=== PATIENT | male | born 1960 | race Caucasian/White ===

== ENCOUNTER 2017-01-20 10:47 | Inpatient (IN) | payer OTHER ==
[2017-01-20] MEDS ORDERED: IPRATROPIUM-ALBUTEROL 3 ML NEB INHALATION STA ×2 (11:15→15:33)
--- NOTE | 2017-01-20 11:20 | ED ---
SOB HPI - General Chief Complaint: Shortness of Breath Stated Complaint: Sent by PCP Abdominal Pressure Time Seen by Provider: 01/20/17 11:00 Source: patient, RN notes reviewed Mode of arrival: ambulatory Limitations: no limitations - History of Present Illness Initial Comments: Is a 56-year-old male with a history of congestive heart failure who states he' s had upper abdominal bloating and some exertional dyspnea for the past several days. He wears compression stockings has not noticed any edema to his ankles is out of the ordinary. He denies any fevers chills sweats he perhaps occasionally has a slight cough no nausea no vomiting. He does state normally he urinates a lot after taking his medication he's had decreased urine output today. He voices no other complaints. MD Complaint: shortness of breath - Related Data Home Medications Medication Instructions Recorded Confirmed Warfarin [Coumadin] 5 mg PO MOFR 09/27/16 01/20/17 Atorvastatin Calcium [Lipitor] 10 mg PO HS 01/20/17 01/20/17 Metoprolol Succinate [Toprol XL] 50 mg PO DAILY 01/20/17 01/20/17 Warfarin [Coumadin] 2.5 mg PO SUTUWETHSA 01/20/17 01/20/17 amLODIPine [Norvasc] 5 mg PO HS 01/20/17 01/20/17 Previous Rx's Medication Instructions Recorded Furosemide [Lasix] 40 mg PO DAILY #30 tab 02/02/15 Allergies Allergy/AdvReac Type Severity Reaction Status Date / Time venom-honey bee AdvReac Severe Swelling Verified 01/20/17 11:17 [bee venom (honey bee)] Review of Systems ROS Statement: Those systems with pertinent positive or pertinent negative responses have been documented in the HPI. ROS Other: All systems not noted in ROS Statement are negative. Gastrointestinal: Reports: as per HPI Past Medical History Past Medical History: Atrial Fibrillation, Heart Failure, COPD, Hyperlipidemia, Hypertension Additional Past Medical History / Comment(s): NEW ONSET AFIB History of Any Multi-Drug Resistant Organisms: None Reported Past Surgical History: No Surgical Hx Reported Past Anesthesia/Blood Transfusion Reactions: No Reported Reaction Past Psychological History: No Psychological Hx Reported Smoking Status: Former smoker Past Alcohol Use History: Daily Past Drug Use History: Marijuana General Exam - General Exam Comments Initial Comments: This is a well-developed well-nourished awake alert oriented 3 male Limitations: no limitations General appearance: alert, in no apparent distress Head exam: Present: atraumatic, normocephalic, normal inspection Eye exam: Present: normal appearance, PERRL, EOMI. Absent: scleral icterus, conjunctival injection, periorbital swelling ENT exam: Present: normal exam, mucous membranes moist Neck exam: Present: normal inspection. Absent: tenderness, meningismus, lymphadenopathy Respiratory exam: Present: decreased breath sounds. Absent: respiratory distress, wheezes, rales, rhonchi, stridor Cardiovascular Exam: Present: regular rate, normal rhythm, normal heart sounds. Absent: systolic murmur, diastolic murmur, rubs, gallop, clicks GI/Abdominal exam: Present: soft, normal bowel sounds. Absent: distended, tenderness, guarding, rebound, rigid Extremities exam: Present: normal inspection, full ROM, normal capillary refill. Absent: tenderness, pedal edema, joint swelling, calf tenderness Back exam: Present: normal inspection Neurological exam: Present: alert, oriented X3, CN II-XII intact Psychiatric exam: Present: normal affect, normal mood Skin exam: Present: warm, dry, intact, normal color. Absent: rash Course Vital Signs 01/20/17 01/20/17 01/20/17 10:54 11:00 11:48 Temperature 96.8 F L Pulse Rate 69 64 Respiratory 24 24 Rate Blood Pressure 146/86 O2 Sat by Pulse 94 L Oximetry 01/20/17 01/20/17 01/20/17 12:00 12:52 14:28 Temperature Pulse Rate 60 61 65 Respiratory 17 17 Rate Blood Pressure 151/79 137/78 O2 Sat by Pulse 100 100 Oximetry - Reevaluation(s) Reevaluation #1: 01/20/17 13:24 I did discuss the findings thus far with the patient he does admit to drinking about 3 beers every day he's had no prior history of liver disease from alcohol. Medical Decision Making - Medical Decision Making I did discuss findings with the hospitalist and with the surgeon on-call patient will be admitted to medicine with surgery consultation. - Lab Data Result diagrams: 01/20/17 11:10 01/20/17 11:10 Lab Results 01/20/17 01/20/17 01/20/17 Range/Units 11:10 11:10 11:10 WBC 7.8 (3.8-10.6) k/uL RBC 3.63 L (4.30-5.90) m/uL Hgb 11.9 L (13.0-17.5) gm/dL Hct 36.8 L (39.0-53.0) % MCV 101.3 H (80.0-100.0) fL MCH 32.9 (25.0-35.0) pg MCHC 32.5 (31.0-37.0) g/dL RDW 15.3 (11.5-15.5) % Plt Count 128 L (150-450) k/uL Neutrophils % 77 % Lymphocytes % 11 % Monocytes % 8 % Eosinophils % 1 % Basophils % 1 % Neutrophils # 6.0 (1.3-7.7) k/uL Lymphocytes # 0.9 L (1.0-4.8) k/uL Monocytes # 0.6 (0-1.0) k/uL Eosinophils # 0.1 (0-0.7) k/uL Basophils # 0.1 (0-0.2) k/uL Macrocytosis Slight PT (9.0-12.0) sec INR (<1.1) APTT (22.0-30.0) sec Sodium 137 (137-145) mmol/L Potassium 4.5 (3.5-5.1) mmol/L Chloride 97 L (98-107) mmol/L Carbon Dioxide 30 (22-30) mmol/L Anion Gap 10 mmol/L BUN 12 (9-20) mg/dL Creatinine 1.12 (0.66-1.25) mg/dL Est GFR (MDRD) Af Amer >60 (>60 ml/min/1.73 sqM) Est GFR (MDRD) Non-Af >60 (>60 ml/min/1.73 sqM) Glucose 103 H (74-99) mg/dL Calcium 9.3 (8.4-10.2) mg/dL Magnesium 1.6 (1.6-2.3) mg/dL Total Bilirubin 4.4 H (0.2-1.3) mg/dL AST 160 H (17-59) U/L ALT 83 H (21-72) U/L Alkaline Phosphatase 402 H (38-126) U/L Total Creatine Kinase 62 (55-170) U/L CK-MB (CK-2) 1.5 (0.0-2.4) ng/mL CK-MB (CK-2) Rel Index 2.4 Troponin I 0.014 (0.000-0.034) ng/mL NT-Pro-B Natriuret Pep pg/mL Total Protein 7.3 (6.3-8.2) g/dL Albumin 3.8 (3.5-5.0) g/dL Amylase 52 (30-110) U/L Lipase 71 (23-300) U/L Urine Color Urine Appearance (Clear) Urine pH (5.0-8.0) Ur Specific [place] (1.001-1.035) Urine Protein (Negative) Urine Glucose (UA) (Negative) Urine Ketones (Negative) Urine Blood (Negative) Urine Nitrate (Negative) Urine Bilirubin (Negative) Urine Urobilinogen (<2.0) mg/dL Ur Leukocyte Esterase (Negative) 01/20/17 01/20/17 01/20/17 Range/Units 11:10 11:10 12:35 WBC (3.8-10.6) k/uL RBC (4.30-5.90) m/uL Hgb (13.0-17.5) gm/dL Hct (39.0-53.0) % MCV (80.0-100.0) fL MCH (25.0-35.0) pg MCHC (31.0-37.0) g/dL RDW (11.5-15.5) % Plt Count (150-450) k/uL Neutrophils % % Lymphocytes % % Monocytes % % Eosinophils % % Basophils % % Neutrophils # (1.3-7.7) k/uL Lymphocytes # (1.0-4.8) k/uL Monocytes # (0-1.0) k/uL Eosinophils # (0-0.7) k/uL Basophils # (0-0.2) k/uL Macrocytosis PT 22.1 H (9.0-12.0) sec INR 2.3 (<1.1) APTT 28.8 (22.0-30.0) sec Sodium (137-145) mmol/L Potassium (3.5-5.1) mmol/L Chloride (98-107) mmol/L Carbon Dioxide (22-30) mmol/L Anion Gap mmol/L BUN (9-20) mg/dL Creatinine (0.66-1.25) mg/dL Est GFR (MDRD) Af Amer (>60 ml/min/1.73 sqM) Est GFR (MDRD) Non-Af (>60 ml/min/1.73 sqM) Glucose (74-99) mg/dL Calcium (8.4-10.2) mg/dL Magnesium (1.6-2.3) mg/dL Total Bilirubin (0.2-1.3) mg/dL AST (17-59) U/L ALT (21-72) U/L Alkaline Phosphatase (38-126) U/L Total Creatine Kinase (55-170) U/L CK-MB (CK-2) (0.0-2.4) ng/mL CK-MB (CK-2) Rel Index Troponin I (0.000-0.034) ng/mL NT-Pro-B Natriuret Pep 846 pg/mL Total Protein (6.3-8.2) g/dL Albumin (3.5-5.0) g/dL Amylase (30-110) U/L Lipase (23-300) U/L Urine Color Yellow Urine Appearance Clear (Clear) Urine pH 6.0 (5.0-8.0) Ur Specific [place] 1.009 (1.001-1.035) Urine Protein Negative (Negative) Urine Glucose (UA) Negative (Negative) Urine Ketones Negative (Negative) Urine Blood Negative (Negative) Urine Nitrate Negative (Negative) Urine Bilirubin 1+ H (Negative) Urine Urobilinogen 6.0 (<2.0) mg/dL Ur Leukocyte Esterase Negative (Negative) - EKG Data -: EKG Interpreted by Me EKG shows normal: sinus rhythm - Radiology Data Radiology results: report reviewed (I did review the imaging and reports are is evidence of gallbladder wall thickening. Patient also is no other findings on imaging.), image reviewed Disposition Clinical Impression: Cholecystitis, Jaundice, Hepatitis, Acute exacerbation of chronic obstructive airways disease Disposition: ADMITTED IP TO THIS [facility] Condition: Stable
[2017-01-20 11:47] LABS: Basophils # (A) 0.1 k/uL (0-0.2); Basophils % (A) 1 %; CH 33.7; CHCM 33.5; Eosinophils # (A) 0.1 k/uL (0-0.7); Eosinophils % (A) 1 %; HCT 36.8 % (39.0-53.0); HDW 2.77; HGB 11.9 gm/dL (13.0-17.5); Luc # (Auto) 0.17; Luc % (Auto) 2; Lymphocytes # (A) 0.9 k/uL (1.0-4.8); Lymphocytes % (A) 11 %; MCH 32.9 pg (25.0-35.0); MCHC 32.5 g/dL (31.0-37.0); MCV 101.3 fL (80.0-100.0); Macrocytosis Slight; Mean Platelet Volume 8.4; Monocytes # (A) 0.6 k/uL (0-1.0); Monocytes % (A) 8 %; Neutrophils % (A) 77 %; RBC 3.63 m/uL (4.30-5.90); RDW 15.3 % (11.5-15.5); WBC 7.8 k/uL (3.8-10.6); WBC (Perox) 8.08
[2017-01-20 11:58] LABS: INR 2.3 (<1.1); Partial Thromboplastin Time 28.8 sec (22.0-30.0); Prothrombin Time 22.1 sec (9.0-12.0)
[2017-01-20 12:04] LABS: ALT 83 U/L (21-72); AST 160 U/L (17-59); Alkaline Phosphatase 402 U/L (38-126); Amylase 52 U/L (30-110); Anion Gap 10 mmol/L; Blood Urea Nitrogen 12 mg/dL (9-20); Calcium 9.3 mg/dL (8.4-10.2); Carbon Dioxide 30 mmol/L (22-30); Chloride 97 mmol/L (98-107); Glucose 103 mg/dL (74-99); Magnesium 1.6 mg/dL (1.6-2.3); Non-African American GFR(MDRD) >60 (>60 ml/min/1.73 sqM); Potassium 4.5 mmol/L (3.5-5.1); Sodium 137 mmol/L (137-145); Total Bilirubin 4.4 mg/dL (0.2-1.3); Total Protein 7.3 g/dL (6.3-8.2)
[2017-01-20 12:21] LABS: Creatine Kinase MB 1.5 ng/mL (0.0-2.4); Troponin I 0.014 ng/mL (0.000-0.034)
--- NOTE | 2017-01-20 12:45 | XR ---
EXAMINATION TYPE: XR abdomen 1V DATE OF EXAM: 01/20/2017 12:39 PM COMPARISON: NONE HISTORY: Pain TECHNIQUE: Single supine KUB image of the abdomen is obtained FINDINGS: Small bowel demonstrates no evidence for dilatation or air fluid levels. Gas and fecal material is seen in non-distended colon. No convincing evidence for pneumoperitoneum. No unusual calcifications. The lung bases are clear. The osseous structures are intact. IMPRESSION: 1. Overall nonobstructive bowel gas pattern.
--- NOTE | 2017-01-20 12:45 | XR ---
EXAMINATION TYPE: XR chest 2V DATE OF EXAM: 01/20/2017 12:39 PM COMPARISON: 01/27/2015 HISTORY: Shortness of breath TECHNIQUE: Frontal and lateral views of the chest are obtained. FINDINGS: Scattered senescent parenchymal changes noted. Hyperinflation compatible with COPD. No evidence for infiltrate. No evidence for atelectasis. Heart size is stable. Mediastinal structures are stable and grossly unremarkable. No evidence for hilar prominence. Degenerative changes dorsal spine. IMPRESSION: 1. No evidence for acute pulmonary disease.
[2017-01-20 13:10] LABS: Appearance,Urine Clear (Clear); Bilirubin,Urine 1+ (Negative); Glucose,Urine (UA) Negative (Negative); Ketones,Urine Negative (Negative); Leukocyte Esterase,Urine Negative (Negative); Nitrite,Urine Negative (Negative); Protein,Urine Negative (Negative); Specific Gravity,Urine 1.009 (1.001-1.035); UA Billing (MACRO vs. MICRO) CHEM
--- NOTE | 2017-01-20 14:14 | US ---
EXAMINATION TYPE: US gallbladder DATE OF EXAM: 01/20/2017 1:52 PM COMPARISON: NONE CLINICAL HISTORY: Pain. Epigastric pain, nausea EXAM MEASUREMENTS: Liver Length: 16.0 cm Gallbladder Wall: 0.3 cm CBD: 0.4 cm Right Kidney: 11.2 x 5.1 x 5.8 cm Findings: Pancreas: obscured by overlying bowel Liver: limited evaluation, visualized portions appear heterogeneous, unable to rule out mass Gallbladder: no evidence of stones as visualized, GB wall upper limits of normal Evidence for sonographic Faustin's sign: No CBD: appears wnl Right Kidney: cystic area mid = 1.2 x 1.2 x 1.3cm IMPRESSION: 1. Hepatic heterogeneity may reflect fatty liver versus diffuse hepatocellular disease. 2. Borderline gallbladder wall thickening.
[2017-01-20] MEDS ORDERED: NALOXONE 0.4 MG/ML 1 ML VIAL IV PRN (15:10)
[2017-01-20] MEDS: SODIUM CHLORIDE 0.9% 1,000 ML IV SCH (16:13)
[2017-01-20] MEDS ORDERED: PIPERACILLIN-TAZOBACTAM 3.375 GM in DEXTROSE/WATER 1 50ML.BAG IVPB STA (16:19)
--- NOTE | 2017-01-20 17:54 | P.GSCN ---
History of Present Illness Consult date: 01/20/17 Reason for Consult: Jaundice, cholecystitis Requesting physician: Nestor Ware History of present illness: The patient is a 56-year-old gentleman with known history of atrial fibrillation and is on Coumadin therapy and also with a history of alcohol abuse who is accompanied by his brother. He reports a strong family history of gallbladder disease in his mother as well as his brother who is at bedside. Incidentally his brother had gallstone pancreatitis where he was hospitalized in an intensive care unit. The patient reports eating approximately 2 days ago a steak [employer] sandwich followed by soup. Then he developed epigastric abdominal pain. He presents with elevated liver enzymes with a total bilirubin of over 4. Ultrasound of the gallbladder was obtained without demonstration of gallstones. Given his presentation including elevated liver enzymes, cholecystitis is suspected. Gen. surgery is consulted. Review of Systems CONSTITUTIONAL: Denies any fever or chills. Has weight loss, unintentional. HEENT: Denies any trouble with hearing or nosebleeds. No difficulty swallowing. Wears glasses. LYMPHATIC: The patient denies any lumps and bumps around the neck. ENDOCRINE: Denies any thyroid disorders. Denies any blood sugar glucose intolerance. RESPIRATORY: Denies pneumonia. Denies any troubles with breathing or dyspnea on exertion. CARDIOVASCULAR: Has atrial fibrillation. On Coumadin. Has hypertension. GASTROINTESTINAL: Denies heart burn, constipation. GENITOURINARY: Denies any blood in urine or increased urinary frequency. MUSCULOSKELETAL: Has occasional back pain, stiffness or joint arthritis. NEUROLOGIC: Denies any numbness or tingling along the distal extremities. No seizure disorders or headaches. PSYCHIATRIC: Denies depression or suidical ideation. HEMATOLOGIC: Has easy bruising on Coumadin. Past Medical History Past Medical History: Atrial Fibrillation, Heart Failure, COPD, Hyperlipidemia, Hypertension, Osteoarthritis (OA) Additional Past Medical History / Comment(s): NEW ONSET AFIB History of Any Multi-Drug Resistant Organisms: None Reported Past Surgical History: No Surgical Hx Reported Past Anesthesia/Blood Transfusion Reactions: No Reported Reaction Past Psychological History: No Psychological Hx Reported Additional Psychological History / Comment(s): PT LIVES ALONE HAS 1 INDOOR PET( DOG).HAS 3 STEPS TO GET INTO HOUSE-HOUSE ON 1 LEVEL. 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 Smoking Status: Former smoker Past Alcohol Use History: Daily Additional Past Alcohol Use History / Comment(s): STARTED SMOKING 1984, QUIT FEW YEARS AGO, DRIKS 3-4 BEER PER DAY. Past Drug Use History: Marijuana - Past Family History Father Family Medical History: Cancer, Hyperlipidemia, Hypertension Additional Family Medical History / Comment(s): LEUKEMIA Mother Family Medical History: Myocardial Infarction ([place]) Medications and Allergies Home Medications Medication Instructions Recorded Confirmed Type Warfarin [Coumadin] 5 mg PO MOFR 09/27/16 01/20/17 History Atorvastatin Calcium [Lipitor] 10 mg PO HS 01/20/17 01/20/17 History Metoprolol Succinate [Toprol XL] 50 mg PO DAILY 01/20/17 01/20/17 History Warfarin [Coumadin] 2.5 mg PO SUTUWETHSA 01/20/17 01/20/17 History amLODIPine [Norvasc] 5 mg PO HS 01/20/17 01/20/17 History Allergies Allergy/AdvReac Type Severity Reaction Status Date / Time venom-honey bee AdvReac Severe Swelling Verified 01/20/17 11:17 [bee venom (honey bee)] Surgical - Exam Vital Signs Temp Pulse Resp BP Pulse Ox 96.8 F L 69 24 146/86 94 L 01/20/17 10:54 01/20/17 10:54 01/20/17 10:54 01/20/17 10:54 01/20/17 10:54 GENERAL: Well developed and in no acute distress. Pleasant. HEENT: Has sclera icterus. Extraocular movements grossly intact. Moist buccal mucosa. Head is atraumatic, normocephalic. Hears conversational speech. No nasal drainage. NECK: Supple without lymphadenopathy. No JV distention. CHEST: Non-labored respirations and equal bilateral excursions. CARDIOVASCULAR: Irregular rate and rhythm. Palpable 2+ radial pulses. ABDOMEN: Nondistended. No peritoneal signs. Tenderness along the epigastrium and right upper quadrant extending to the left upper quadrant. MUSCULOSKELETAL: No clubbing, cyanosis or edema. NEUROLOGIC: No focal or lateralizing signs. PSYCH: Appropriate affect. Alert and oriented to person, place and time. SKIN: Jaundiced. There is discoloration of the distal extremities including of the feet and lower legs. Results - Labs 01/20/17 11:10 01/20/17 11:10 - Imaging US - abdomen: report reviewed (No gallstones identified.), image reviewed Assessment and Plan (1) Unintentional weight loss Status: Acute (2) Alcohol abuse Status: Chronic (3) Family history of gallbladder disease Status: Chronic (4) Elevated liver enzymes Status: Acute (5) Elevated liver function tests Status: Acute (6) Jaundice Status: Acute (7) Atrial fibrillation Status: Chronic (8) Congestive heart failure (CHF) Status: Chronic (9) Hypertension Status: Chronic (10) Hyperlipemia Status: Acute (11) Thrombocytopenia Status: Acute Plan: 1. He has elevated liver enzymes with abdominal pain highly suspicious of hepatitis. 2. No evidence of acute gallstones were identified or acute cholecystitis on sonogram. No urgent surgical intervention needed at this time. 3. Additionally, he has thrombocytopenia with abnormal liver enzymes and history of alcoholism. Recommend CT of the abdomen pelvis with IV contrast to elucidate underlying liver pathology. 4. Recommend cardiology for chronic atrial fibrillation and possible need for future surgery. 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 5. May have clear liquid diet in the interim. 6. Recommend GI consultation as he has history of jaundice. 7. Ideally, he will need at least 5-7 days off Coumadin prior to any additional surgical intervention. 8. He has history of alcoholism and would recommend alcohol withdrawal monitoring. The above plan was discussed with the patient including his brother at bedside. Additionally, primary team also updated regarding care plan. Thank you for this kind consultation.
[2017-01-20] MEDS ORDERED: RX INFO: IV CONTRAST WAS GIVEN 1 EACH MISC MISCELLANE PRN (17:55)
--- NOTE | 2017-01-20 19:06 | CT ---
EXAMINATION TYPE: CT abdomen pelvis w con DATE OF EXAM: 01/20/2017 6:54 PM COMPARISON: NONE HISTORY: Pt states of abdominal pain and liver lesions. CT DLP: 645.4 mGycm Automated exposure control for dose reduction was used. TECHNIQUE: Helical acquisition of images was performed from the lung bases through the pelvis. CONTRAST: Performed without Oral Contrast and with IV Contrast, patient injected with 100 mL of Omnipaque 300. FINDINGS: Lung bases are clear. There is no pleural effusion. There is no pericardial effusion. There are varia ble sized areas of abnormal hypodensity in the liver. The largest is in the anterior right lobe and m easures 6 cm. There is general decreased density in the left lobe of the liver anteriorly. Bile ducts are not dilated. Spleen appears normal. There is no evidence of a pancreatic mass. Gallbladder appea rs normal. There is no adrenal mass. Kidneys show satisfactory contrast opacification. There is no hydronephrosi s. There is a 1.5 cm cyst in the interpolar right kidney. There is no retroperitoneal adenopathy. The re is no ascites. There is mild free fluid in the pelvis. I see no intestinal wall thickening. There are no dilated loops. Bladder distends smoothly. I see no bony destructive process. There is 20% ante rior wedging of L1 vertebra. This is probably old. The delayed images appear to show some peripheral enhancement of the lesions in the right lobe of the liver.: IMPRESSION: THERE IS A LARGE AREA OF THE ANTERIOR RIGHT LOBE OF THE LIVER WITH LOW-DENSITY LESIONS AND PERIPHERAL ENHANCEMENT. THIS APPEARANCE IS NONSPECIFIC AND I WOULD CONSIDER BOTH MALIGNANCY AND PRESENCE OF LAR GE HEMANGIOMATA. THERE IS HYPODENSITY IN THE LEFT LOBE OF THE LIVER THAT IS NOT APPEARING MASSLIKE AN D COULD RELATE TO REGIONAL FATTY INFILTRATION. MILD ASCITES. ATHEROSCLEROTIC VASCULAR DISEASE. SMALL RIGHT RENAL CORTICAL CYST. COMPARISON WITH ANY OLD EXAM WOULD BE HELPFUL.
[2017-01-20] MEDS: IPRATROPIUM-ALBUTEROL 3 ML NEB INHALATION SCH ×2 (19:17→22:54)
[2017-01-20 19:38] LABS: Hepatitis B Surface Ag Index 0.12
[2017-01-20 19:43] LABS: Hepatitis B Core IgM Index 0.05
[2017-01-20 19:55] LABS: Hepatitis C Virus IgG Index 0.01
[2017-01-20 19:57] LABS: Hepatitis C Virus IgG Ab Negative (Negative)
[2017-01-21] MEDS: SODIUM CHLORIDE 0.9% 1,000 ML IV SCH ×2 (00:10→09:20)
[2017-01-21] MEDS: IPRATROPIUM-ALBUTEROL 3 ML NEB INHALATION SCH ×3 (03:34→12:06)
[2017-01-21 07:55] VITALS: BP 121/54; PULSE 64; RESP 19; TEMP 99.1
[2017-01-21] MEDS ORDERED: INFLUENZA VACCINE (3YR+) 60 MCG/0.5 ML SYRINGE IM ONE (08:00)
[2017-01-21 08:30] LABS: ALT 63 U/L (21-72); AST 122 U/L (17-59); Alkaline Phosphatase 326 U/L (38-126); Anion Gap 7 mmol/L; Blood Urea Nitrogen 9 mg/dL (9-20); Calcium 8.3 mg/dL (8.4-10.2); Carbon Dioxide 29 mmol/L (22-30); Chloride 102 mmol/L (98-107); Glucose 102 mg/dL (74-99); Non-African American GFR(MDRD) >60 (>60 ml/min/1.73 sqM); Potassium 3.8 mmol/L (3.5-5.1); Sodium 138 mmol/L (137-145); Total Bilirubin 3.5 mg/dL (0.2-1.3); Total Protein 5.9 g/dL (6.3-8.2)
--- NOTE | 2017-01-21 10:10 | P.CONS ---
History of Present Illness - Reason for Consult Consult date: 01/21/17 Hepatitis jaundice Requesting physician: Mee Buckley - History of Present Illness 56-year-old gentleman patient of Dr. Tanner admitted with acute midepigastric abdominal pain, nausea, vomiting, jaundice, and elevated liver enzymes. Past medical history of atrial fibrillation with Coumadin monitoring, long-standing EtOH abuse, CHF, hyperlipidemia, hypertension, COPD, and occasional marijuana. Presenting symptoms have been present for the last 3-4 days with darker colored urine. Denies acholic stools. Total bilirubin 4.4. AST 160. ALT 83. Alkaline phosphatase 402. INR 2.3. White count 7.8. Hemoglobin 11.9. MCV 101. Platelet 128. Upon review of previous medical records liver enzymes were unremarkable October 2016. Denies fever, chills, weight loss, hematemesis, hematochezia, or melena. No history of intravenous drug abuse or changes in medications. No recent antibiotics. He drinks 2-3 days a week 2-3 beers. Hepatitis panel negative. Presently without abdominal pain. Ultrasound abdomen heterogeneous appearing liver with no evidence of stones. CBD 0.4 cm. Computed tomography scan abdomen and pelvis with contrast reported variable sized areas of abnormal hypodensity in the liver. The largest in the anterior right lobe measuring 6 cm. Right anterior lobe of the liver hypodense lesions indicated peripheral enhancement possible malignancy possible presence of large hemangiomata possible combination of both. Bile ducts not dilated. No evidence of pancreatic mass. Gallbladder appeared normal. No ascites. Review of Systems Constitutional: Denies fever, chills, sweats, weight gain, or loss. HEENT: Negative for migraines, blurred vision or loss, earaches, drainage, tinnitus, oral mucosal lesions, dysphagia, or odynophagia. Cardiac: Atrial fibrillation. Heart failure. Hyperlipidemia. Hypertension. Denies chest pain. Respiratory: COPD. Her wanting usage. Negative for shortness of breath, hemoptysis, cough, or sputum production. Gastrointestinal: See HPI for pertinent findings. Genitourinary: Negative for hematuria, urgency, frequency, polyuria, dysuria, or penile discharge. Musculoskeletal: Osteoarthritis. Neurologic: Negative for stroke or TIA. Endocrine: Negative for thyroid problems. Skin: Negative for rash or itching. Psychiatric: Negative history for depression and anxiety All systems: negative (See HPI) Past Medical History Past Medical History: Atrial Fibrillation, Heart Failure, COPD, Hyperlipidemia, Hypertension, Osteoarthritis (OA) Additional Past Medical History / Comment(s): NEW ONSET AFIB History of Any Multi-Drug Resistant Organisms: None Reported Past Surgical History: No Surgical Hx Reported Past Anesthesia/Blood Transfusion Reactions: No Reported Reaction Past Psychological History: No Psychological Hx Reported Additional Psychological History / Comment(s): PT LIVES ALONE HAS 1 INDOOR PET( DOG).HAS 3 STEPS TO GET INTO HOUSE-HOUSE ON 1 LEVEL. 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 Smoking Status: Former smoker Past Alcohol Use History: Daily Additional Past Alcohol Use History / Comment(s): STARTED SMOKING 1984, QUIT FEW YEARS AGO, DRIKS 3-4 BEER PER DAY. Past Drug Use History: Marijuana - Past Family History Father Family Medical History: Cancer, Hyperlipidemia, Hypertension Additional Family Medical History / Comment(s): LEUKEMIA Mother Family Medical History: Myocardial Infarction ([place]) Medications and Allergies Home Medications Medication Instructions Recorded Confirmed Type Warfarin [Coumadin] 5 mg PO MOFR 09/27/16 01/20/17 History Atorvastatin Calcium [Lipitor] 10 mg PO HS 01/20/17 01/20/17 History Metoprolol Succinate [Toprol XL] 50 mg PO DAILY 01/20/17 01/20/17 History Warfarin [Coumadin] 2.5 mg PO SUTUWETHSA 01/20/17 01/20/17 History amLODIPine [Norvasc] 5 mg PO HS 01/20/17 01/20/17 History Allergies Allergy/AdvReac Type Severity Reaction Status Date / Time venom-honey bee AdvReac Severe Swelling Verified 01/20/17 11:17 [bee venom (honey bee)] Physical Exam Vitals: Vital Signs Temp Pulse Pulse Pulse Resp BP BP 01/21/17 07:00 99.1 F 64 19 121/54 01/21/17 00:00 65 01/20/17 23:05 98.9 F 65 20 142/70 01/20/17 23:00 98.9 F 65 20 142/70 01/20/17 20:42 135/75 01/20/17 17:16 98.7 F 64 19 01/20/17 16:50 100.2 F H 70 17 138/72 01/20/17 16:29 68 01/20/17 16:19 68 01/20/17 16:15 98.2 F 77 15 144/79 BP Pulse Ox 01/21/17 07:00 92 L 01/21/17 00:00 01/20/17 23:05 95 01/20/17 23:00 95 01/20/17 20:42 01/20/17 17:16 148/77 97 01/20/17 16:50 97 01/20/17 16:29 01/20/17 16:19 01/20/17 16:15 95 Intake and Output 01/20/17 01/21/17 01/21/17 22:59 06:59 14:59 Intake Total 600 100 Balance 600 100 Intake: Oral 600 100 Other: Voiding Method Toilet Urinal # Voids 1 Weight 77.111 kg General appearance: The patient is alert, oriented, in no acute distress. Jaundice. HET: Head is normocephalic and atraumatic. Pupils are equal and reactive. Sclerae icterus. Oropharynx is clear without lesions. Neck: Supple without lymphadenopathy. Trachea midline. Heart: S1 S2. Regular rate and rhythm. Lungs: No crackles or wheezes are heard. Abdomen: Soft, nontender, nondistended with bowel sounds. No peritoneal signs. No palpable organomegaly or masses. Extremities: Normal skin color and turgor. No cyanosis, rash, ulceration, clubbing, or edema. Radial and pedal pulses are 2/4 bilaterally. Neurological: No focal deficits. Strength and sensation are grossly intact. Results CBC & Chem 7: 01/20/17 11:10 01/21/17 07:09 Labs: Abnormal Lab Results - Last 24 Hours (Table) 01/21/17 Range/Units 07:09 Glucose 102 H (74-99) mg/dL Calcium 8.3 L (8.4-10.2) mg/dL Total Bilirubin 3.5 H (0.2-1.3) mg/dL AST 122 H (17-59) U/L Alkaline Phosphatase 326 H (38-126) U/L Total Protein 5.9 L (6.3-8.2) g/dL Albumin 2.8 L (3.5-5.0) g/dL CT scan - abdomen: report reviewed (Reviewed by Dr. Lux) US - abdomen: report reviewed (Reviewed by Dr. Lux) Assessment and Plan (1) Jaundice Status: Acute (2) Liver mass, right lobe Status: Acute (3) ETOH abuse Status: Acute (4) Elevated liver enzymes Status: Acute (5) Thrombocytopenia Status: Acute (6) Warfarin-induced coagulopathy Status: Acute (7) Hepatitis Narrative/Plan: Suspect intrahepatic cholestasis possible malignancy possible liver hemangioma Status: Acute (8) History of atrial fibrillation Status: Chronic Plan: 1. AFP and CEA markers. 2. Diet as tolerated if agreeable with general surgery. 3. Would advise liver biopsy once PT INR is therapeutic. This can be performed as an outpatient in the next 2-3 days. 4. If liver biopsy is not amendable would advise outpatient MRI liver. 5. Liver enzymes are improving agreeable for discharge. Follow up GI office 1 week after discharge for reevaluation. 6. Alcohol abstinence strongly advised. Thank you for this kind referral and the opportunity to participate in the care of your patient. This consultation was discussed with Dr. Lux. The impression and plan of care have been directed as dictated.
[2017-01-21] MEDS ORDERED: PANTOPRAZOLE 40 MG/10 ML VIAL IVP SCH (11:30)
--- NOTE | 2017-01-21 13:17 | P.PN ---
Subjective 56-year-old being seen sitting up in bed. Patient is aware of the plan of care. Patient is scheduled for an MRI of the liver this afternoon with the plan the patient will be discharged after with a follow-up in GIs office in one week. Patient's been followed by GI service. They're advising a liver biopsy once the pro time and INR therapeutic. Patient is on anticoagulation Coumadin for the chronic atrial fibrillation. Patient did have a computed tomography scan of the abdomen pelvis showed mild ascites with the presence of a large hemangiomata patient did have an ultrasound of the gallbladder did not demonstrate gallstones patient's noted to have elevated liver enzymes a surgical consultation was requested by the attending Objective - Vital Signs Vital signs: Vital Signs Temp 99.1 F 01/21/17 07:00 Pulse 64 01/21/17 07:00 Resp 19 01/21/17 07:00 BP 121/54 01/21/17 07:00 Pulse Ox 92 L 01/21/17 07:00 Intake & Output 01/20/17 01/21/17 01/21/17 18:59 06:59 18:59 Intake Total 700 Balance 700 Weight 77.111 kg Intake: Oral 700 Other: Voiding Method Toilet Toilet Urinal Urinal # Voids 1 - Exam Physical exam 56-year-old looking older than stated age jaundice in appearance thin sitting up in bed oriented 3 pleasant appears in no acute distress Lungs essentially clear adequate air movement on room air Heart S1-S2 audible regular Abdomen flat nontender not distended no palpable organomegaly Extremities no edema - Labs CBC & Chem 7: 01/20/17 11:10 01/21/17 07:09 Labs: Abnormal Lab Results - Last 24 Hours (Table) 01/21/17 Range/Units 07:09 Glucose 102 H (74-99) mg/dL Calcium 8.3 L (8.4-10.2) mg/dL Total Bilirubin 3.5 H (0.2-1.3) mg/dL AST 122 H (17-59) U/L Alkaline Phosphatase 326 H (38-126) U/L Total Protein 5.9 L (6.3-8.2) g/dL Albumin 2.8 L (3.5-5.0) g/dL Assessment and Plan Plan: Impression Present on admission jaundice with elevated liver enzymes History of chronic alcoholism daily consumption acute Coagulopathy Coumadin induced Chronic atrial fibrillation rate control on anticoagulation Ultrasound mass right lobe liver Thrombocytopenia likely due to chronic alcoholism Hepatitis Suspect intrahepatic cholestasis likely malignancy possible liver hemangioma Plan Continue recommendations by GI service. Follow-up in the office in one week MRI of the liver today them to be discharged defer to the timing of the discharge to the attending Alcohol abstinence strongly advised No evidence of acute gallstones were identified per ultrasound there is no urgent surgical intervention needed at this time. Ideally the patient would need to be off anticoagulation Coumadin for at least 5-7 days before any additional surgical intervention The above dictated assessment and findings were discussed with dr Buckley. Impression and the plan of care have been dictated as directed. Delmy Bonner nurse practitioner acting as a scribe for Mike
--- NOTE | 2017-01-21 13:23 | HP ---
DATE OF ADMISSION: HISTORY AND PHYSICAL AND DISCHARGE SUMMARY A 56-year-old came in with complaints of epigastric abdominal pain, burning sensation secondary to gastritis. Patient was started on Protonix here. The patient denied any fevers or chills. Patient was having some nausea. The patient does drink alcohol every single day, about 4 beers per day. Patient denied any alcohol withdrawals in the past and patient does not believe he will have alcohol withdrawals. Patient used to smoke in the past and occasionally uses marijuana. Patient is found to have elevated liver enzymes secondary to alcoholic hepatitis. Gallbladder ultrasound is showed mild thickening, but no cholelithiasis was appreciated. Patient was evaluated by Surgery. No further intervention regarding that. Patient had a CT of the abdomen, abdominopelvic CT, which showed a 6 cm mass in the anterior lobe of the liver, abnormal hypodensity in the liver and suspicious for malignancy versus hemangioma. Patient is getting an MRI. After MRI, patient will be discharged. Patient's Coumadin will be held as patient will be brought back for biopsy in the next couple of days. Patient will be treated for alcoholic gastritis and alcoholic hepatitis. The patient presently does not have any of those symptoms and patient is willing to quit alcohol. Patient does have history of atrial fibrillation and is on Coumadin for that. REVIEW OF SYSTEMS: CONSTITUTIONAL: No fever, no malaise, no fatigue. HEENT: No recent visual problems or hearing problems. Denied any sore throat. CARDIOVASCULAR: No chest pain, orthopnea, PND, no palpitations, no syncope. PULMONARY: No shortness of breath, no cough, no hemoptysis. GASTROINTESTINAL: As described in HPI. NEUROLOGICAL: No headaches, no weakness, no numbness. HEMATOLOGICAL: Denies any bleeding or petechiae. GENITOURINARY: Denies any burning micturition, frequency, or urgency. MUSCULOSKELETAL/RHEUMATOLOGICAL: Denies any joint pain, swelling, or any muscle pain. ENDOCRINE: Denies any polyuria or polydipsia. The rest of the 14 point review of systems is negative. Past medical history is significant for atrial fibrillation, COPD, hyperlipidemia, hypertension, osteoarthritis. I do not see any congestive heart failure at all, though it was documented here. SOCIAL HISTORY: Former smoker. Alcohol history as mentioned. Marijuana history as mentioned above. FAMILY HISTORY: Significant for cancer, hyperlipidemia, hypertension, leukemia. Mother had a myocardial infarction. PHYSICAL EXAMINATION: Temperature 99.1, pulse of 64, respiratory rate of 19, blood pressure is 121/54, saturating at 92% on room air. PHYSICAL EXAMINATION: GENERAL: The patient is alert and oriented x3, not in any acute distress. Well developed, well nourished. HEENT: Pupils are round and equally reacting to light. EOMI. The patient has scleral icterus. No conjunctival pallor. Normocephalic, atraumatic. No pharyngeal erythema. No thyromegaly. CARDIOVASCULAR: S1 and S2 present. No murmurs, rubs, or gallops. PULMONARY: Chest is clear to auscultation, no wheezing or crackles. ABDOMEN: Soft, nontender, nondistended, normoactive bowel sounds. No palpable organomegaly. MUSCULOSKELETAL: No joint swelling or deformity. EXTREMITIES: No cyanosis, clubbing, or pedal edema. NEUROLOGICAL: Gross neurological examination did not reveal any focal deficits. SKIN: No rashes. LABORATORY DATA: CBC, CMP are abnormal for elevated bilirubin, which is coming down which is 3.5 now as compared to 4.4. AST and ALT are elevated and ratio is typical for alcoholic hepatitis, 160 and 83, they are also coming down. Abdominopelvic CT, chest x-ray, gallbladder ultrasound as mentioned above. ASSESSMENT AND PLAN: 1. Abdominal pain secondary to alcoholic gastritis. Patient will be discharged on 14 more doses of Prilosec. 2. Jaundice secondary to acute alcoholic hepatitis. 3. Alcohol abuse history. 4. Elevated liver enzymes secondary to alcoholic hepatitis and AST and ALT ratio is typical for that. 5. Thrombocytopenia and macrocytosis secondary to alcohol use. 6. Atrial fibrillation, rate controlled. on Coumadin. Management of Coumadin as mentioned above. 7. Incidental finding of a mass in the liver. Further evaluation and management as mentioned in the history itself. Patient will be discharged on omeprazole and thiamine after MRI of the liver. Depending on the MRI, decision will be made regarding whether patient will need biopsy or not. If patient does not require biopsy, the patient will be resumed on Coumadin as it is and his INR is therapeutic at this point of time. If not, patient's Coumadin will be held and patient will be brought back in a couple of days for liver biopsy. Additionally patient will be give omeprazole and thiamine. Patient will follow with Dr. Beryl Chery on the january at 9 a.m. Activity as tolerated. Cardiac diet. Alcohol cessation counseling was provided.
--- NOTE | 2017-01-21 15:35 | MR ---
EXAMINATION TYPE: MR liver wo/w con DATE OF EXAM: 01/21/2017 2:52 PM COMPARISON: CT abdomen and pelvis and gallbladder ultrasound from yesterday. HISTORY: Upper abdominal pain, liver mass seen on CT CONTRAST: Standard multiplanar, multisequence MRI departmental protocol utilizing 15 mL intravenous MultiHance gadolinium contrast. FINDINGS: LIVER: Corresponding to recent CT there is overall heterogeneity throughout the liver. There is more focal lesion centrally involving the medial segment left hepatic lobe measuring approximately 4.6 x 4 .4 cm on axial image 28 series 601 that is slight T2 hyperintensity relative to majority of liver and more prominent T1 hypointensity. Postcontrast images show heterogeneous rim type enhancement becomin g slightly more hyperintense on T1-weighted images but persistently less hyperintense than remainder of the liver. There are multiple adjacent subcentimeter similar foci seen near this lesion. There is additional subcentimeter lesion posterior segment right hepatic lobe noted on coronal image 94 series 901 for reference. Hepatic drains draining into IVC are patent. Main portal vein is patent. Right po rtal vein is patent. There is constant filling defect in the hepatic vein as branches into left and h epatic segments centrally seen best image 320 series 801 consistent with thrombus. Tumor thrombus is not excluded though no distinct enhancement is seen. Liver is overall normal in size. There is new p ericholecystic fluid seen. No intraluminal gallstones are identified. No suspicious biliary dilatatio n is noted. Some fatty infiltration throughout the liver is present especially left hepatic lobe. OTHER: Lung bases are clear. Spleen, pancreas, and both adrenal glands are felt within normal limits. There is simple appearing 1.5 cm cyst in the right kidney mid pole level on image 11 series 601. The re is no suspicious small or large bowel dilatation. Adjacent to distal esophagus there is redemonstr ation of focal fluid collection consistent with herniated cyst or fluid of uncertain etiology, there is suggestion of linear fatty structure inferiorly. The etiology uncertain. Lesion is distinct from t he distal esophagus. IMPRESSION: There is filling defect consistent with clot in the portal venous system at branches of middle and le ft portal veins, favor tumor thrombus though no distinct enhancement is identified, bland thrombus ca nnot be excluded. This alters normal vascular pattern and makes post contrast imaging suboptimal laura eved likely contributing to the overall heterogeneity. Neoplasm is suspected in the liver with multif ocal lesions felt present, largest lesion in the anterior aspect medial segment left hepatic lobe. Di fferential includes multifocal HCC versus metastatic disease. Consider imaging guided biopsy for tiss ue analysis.
== END 2017-01-21 15:14 | disposition home or self-care (01) | DRG 392 ==
LOC: EC 10:47 → 4MS4W 15:12
PROVIDERS: ADMIT Internal Medicine; ATTEND Internal Medicine
PROC: 3E0234Z Introduction of Serum, Toxoid and Vaccine into Muscle, Percutaneous Approach (ICD-10-PCS; principal; 2017-01-20)
DX: K29.20 Alcoholic gastritis without bleeding (principal); D69.59 Other secondary thrombocytopenia; R16.0 Hepatomegaly, not elsewhere classified; I48.2 Chronic atrial fibrillation; I11.0 Hypertensive heart disease with heart failure; I50.9 Heart failure, unspecified; K70.11 Alcoholic hepatitis with ascites; Z23 Encounter for immunization; F10.20 Alcohol dependence, uncomplicated; E78.5 Hyperlipidemia, unspecified; D75.89 Other specified diseases of blood and blood-forming organs; M19.90 Unspecified osteoarthritis, unspecified site; F12.90 Cannabis use, unspecified, uncomplicated; R79.1 Abnormal coagulation profile; T45.515A Adverse effect of anticoagulants, initial encounter; Z87.891 Personal history of nicotine dependence; Z79.01 Long term (current) use of anticoagulants; Z79.899 Other long term (current) drug therapy
CPT/HCPCS: 36415; 71020; 74000; 74177; 74183; 76705; 80053; 80074; 81003; 82105; 82150; 82378; 82550; 82553; 83690; 83735; 83880; 84484; 85025; 85610; 85730; 87040; 90686; 93005; 94640; 96360; 99285

== ENCOUNTER 2017-01-28 13:51 | Inpatient (IN) | payer OTHER ==
[2017-01-28] MEDS ORDERED: IOHEXOL 350 MG/ML 25 ML BOTTLE (ORAL USE) PO PRN (14:43)
[2017-01-28] MEDS ORDERED: ONDANSETRON 4 MG/2 ML VIAL IVP STA (14:43)
[2017-01-28] MEDS ORDERED: SODIUM CHLORIDE 0.9% 1,000 ML IV STA (14:43)
[2017-01-28] MEDS ORDERED: MORPHINE SULFATE 2 MG/ML SYRINGE IVP STA (14:43)
--- NOTE | 2017-01-28 14:51 | ED ---
Abdominal Pain HPI - General Chief Complaint: Abdominal Pain Stated Complaint: abdominal bloating Source: patient Mode of arrival: ambulatory Limitations: no limitations - History of Present Illness Initial Comments: Patient is a 56-year-old male who presents for evaluation for abdominal pain and bloating. Past medical history as below. Patient was recently admitted to our facility and diagnosed with possible liver cancer. He is in the process of being worked up as an outpatient and has a biopsy scheduled for later this month. He comes in today because his abdominal pain and bloating is acutely worsened. He has generalized pain all over his abdomen. It is sharp especially with movement. Nothing seems to make it better. He has associated nausea. States that he has decreased by mouth intake because she is afraid to eat because it makes his pain worse. He has shortness of breath which she relates to the pain due to the abdominal distention. He is tried omeprazole at home with no relief. His last bowel movement was 4 days ago. States that he is not passing much gas either. History of significant alcohol abuse but states that he has not drink in several weeks. He denies fever, chills, headache, changes in vision, URI symptoms, cough, chest pain, diarrhea, pain or burning with urination. - Related Data Home Medications Medication Instructions Recorded Confirmed Metoprolol Succinate [Toprol XL] 50 mg PO DAILY 01/20/17 01/28/17 amLODIPine [Norvasc] 5 mg PO HS 01/20/17 01/28/17 Previous Rx's Medication Instructions Recorded Omeprazole [PriLOSEC] 40 mg PO AC-BRKFST #14 capsule. 01/21/17 Thiamine [Vitamin B-1] 100 mg PO DAILY #30 tablet 01/21/17 Allergies Allergy/AdvReac Type Severity Reaction Status Date / Time venom-honey bee AdvReac Severe Swelling Verified 01/28/17 13:57 [bee venom (honey bee)] Review of Systems ROS Statement: Those systems with pertinent positive or pertinent negative responses have been documented in the HPI. ROS Other: All systems not noted in ROS Statement are negative. Past Medical History Past Medical History: Atrial Fibrillation, Cancer, Heart Failure, COPD, Hyperlipidemia, Hypertension, Osteoarthritis (OA) Additional Past Medical History / Comment(s): liver CA, NEW ONSET AFIB History of Any Multi-Drug Resistant Organisms: None Reported Past Surgical History: No Surgical Hx Reported Past Anesthesia/Blood Transfusion Reactions: No Reported Reaction Past Psychological History: No Psychological Hx Reported Additional Psychological History / Comment(s): PT LIVES ALONE HAS 1 INDOOR PET( DOG).HAS 3 STEPS TO GET INTO HOUSE-HOUSE ON 1 LEVEL. 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 Smoking Status: Former smoker Past Alcohol Use History: Daily Additional Past Alcohol Use History / Comment(s): STARTED SMOKING 1984, QUIT FEW YEARS AGO, DRIKS 3-4 BEER PER DAY. Past Drug Use History: Marijuana - Past Family History Father Family Medical History: Cancer, Hyperlipidemia, Hypertension Additional Family Medical History / Comment(s): LEUKEMIA Mother Family Medical History: Myocardial Infarction ([place]) General Exam Limitations: no limitations General appearance: alert, in no apparent distress, other (Lying flat in stretcher.) Head exam: Present: atraumatic, normocephalic, normal inspection Eye exam: Present: PERRL, EOMI, other (Jaundiced). Absent: scleral icterus, conjunctival injection, periorbital swelling ENT exam: Present: normal exam, mucous membranes moist Neck exam: Present: normal inspection. Absent: tenderness, meningismus, lymphadenopathy Respiratory exam: Present: normal lung sounds bilaterally, other (Clear bilaterally without wheezes rales or rhonchi. Diminished at the lung bases.). Absent: respiratory distress, wheezes, rales, rhonchi, stridor Cardiovascular Exam: Present: regular rate, normal rhythm, normal heart sounds. Absent: systolic murmur, diastolic murmur, rubs, gallop, clicks GI/Abdominal exam: Present: soft, distended, tenderness, hyperactive bowel sounds, other (Abdomen is distended. Caput medusa present. No fluid wave to suggest significant ascites. Generalized tenderness all over his abdomen. Palpable liver margin roughly 4 cm. Hyperactive bowel sounds especially in the left lower quadrant.). Absent: guarding, rebound, rigid Extremities exam: Present: normal inspection, full ROM, normal capillary refill. Absent: tenderness, pedal edema, joint swelling, calf tenderness Back exam: Present: normal inspection Neurological exam: Present: alert, oriented X3, CN II-XII intact Psychiatric exam: Present: normal affect, normal mood Skin exam: Present: warm, dry, intact, normal color. Absent: rash Course Vital Signs 01/28/17 01/28/17 01/28/17 13:53 15:47 16:00 Temperature 97.3 F L 97 F L Pulse Rate 89 74 73 Respiratory 18 18 16 Rate Blood Pressure 116/61 121/73 117/63 O2 Sat by Pulse 97 97 97 Oximetry 01/28/17 18:00 Temperature Pulse Rate 73 Respiratory 16 Rate Blood Pressure 123/63 O2 Sat by Pulse 95 Oximetry Medical Decision Making - Medical Decision Making 1445: Patient presents for evaluation for generalized abdominal pain and bloating. This is acutely worsened over the last couple of days. Clinical concern for bowel obstruction at this time. Recently diagnosed with possible liver cancer. We'll order abdominal labs with coags, CT abdomen and pelvis with by mouth contrast, IV fluids, morphine, Zofran. 1555: LA 4.1. Ordered additional fluids. Reviewed laboratory studies. Worsening AST and ALT. Acute kidney injury. No leukocytosis. Rest of lites appeared to be within normal limits. Updated the patient. He states that he is feeling a little bit better with the pain medications and Zofran. Awaiting CT. He still drinking the contrast. 1836: Reviewed CT findings. New-onset ascites. Enlarged liver. No bowel obstruction. No other inflammatory changes in the belly. Discussed with the patient. Very upset with the pace on which his final diagnosis is being achieved. Recommended admission with further investigation on the patient's condition. Considered SBP. However, the patient is not having any constant abdominal pain. He is hemodynamically stable without fevers. No leukocytosis. Believe his lactic acidosis is secondary to dehydration. He has felt better after morphine and IV fluids. Patient is also anticoagulated with an INR 1.9. Page to Dr. Ware for admission. 1842: Spoke with PROCESSING SUPERVISOR of Dr. Ware -agrees with admission. Requesting consults to GI. Morphine to be scheduled when necessary. No further orders. - Lab Data Result diagrams: 01/28/17 14:50 01/28/17 14:50 Lab Results 01/28/17 01/28/17 01/28/17 Range/Units 14:50 14:50 14:50 WBC 8.1 (3.8-10.6) k/uL RBC 3.47 L (4.30-5.90) m/uL Hgb 11.7 L (13.0-17.5) gm/dL Hct 37.1 L (39.0-53.0) % MCV 106.8 H D (80.0-100.0) fL MCH 33.8 (25.0-35.0) pg MCHC 31.7 (31.0-37.0) g/dL RDW 17.1 H (11.5-15.5) % Plt Count 194 D (150-450) k/uL Neutrophils % 83 % Lymphocytes % 9 % Monocytes % 5 % Eosinophils % 1 % Basophils % 1 % Neutrophils # 6.7 (1.3-7.7) k/uL Lymphocytes # 0.7 L (1.0-4.8) k/uL Monocytes # 0.4 (0-1.0) k/uL Eosinophils # 0.1 (0-0.7) k/uL Basophils # 0.0 (0-0.2) k/uL Polychromasia Present Anisocytosis Slight Macrocytosis Marked PT (9.0-12.0) sec INR (<1.1) APTT (22.0-30.0) sec Sodium 136 L (137-145) mmol/L Potassium 4.4 (3.5-5.1) mmol/L Chloride 97 L (98-107) mmol/L Carbon Dioxide 27 (22-30) mmol/L Anion Gap 12 mmol/L BUN 33 H (9-20) mg/dL Creatinine 1.70 H (0.66-1.25) mg/dL Est GFR (MDRD) Af Amer 51 (>60 ml/min/1.73 sqM) Est GFR (MDRD) Non-Af 42 (>60 ml/min/1.73 sqM) Glucose 106 H (74-99) mg/dL Plasma Lactic Acid Puma 4.1 H* (0.7-2.0) mmol/L Calcium 8.9 (8.4-10.2) mg/dL Total Bilirubin 8.3 H (0.2-1.3) mg/dL AST 317 H (17-59) U/L ALT 93 H (21-72) U/L Alkaline Phosphatase 458 H (38-126) U/L Total Protein 7.0 (6.3-8.2) g/dL Albumin 3.1 L (3.5-5.0) g/dL Lipase 70 (23-300) U/L Urine Color Urine Appearance (Clear) Urine pH (5.0-8.0) Ur Specific Wallis (1.001-1.035) Urine Protein (Negative) Urine Glucose (UA) (Negative) Urine Ketones (Negative) Urine Blood (Negative) Urine Nitrate (Negative) Urine Bilirubin (Negative) Urine Urobilinogen (<2.0) mg/dL Ur Leukocyte Esterase (Negative) Urine RBC (0-5) /hpf Urine WBC (0-5) /hpf Urine Bacteria (None) /hpf Hyaline Casts (0-2) /lpf Urine Mucus (None) /hpf 01/28/17 01/28/17 Range/Units 14:50 17:47 WBC (3.8-10.6) k/uL RBC (4.30-5.90) m/uL Hgb (13.0-17.5) gm/dL Hct (39.0-53.0) % MCV (80.0-100.0) fL MCH (25.0-35.0) pg MCHC (31.0-37.0) g/dL RDW (11.5-15.5) % Plt Count (150-450) k/uL Neutrophils % % Lymphocytes % % Monocytes % % Eosinophils % % Basophils % % Neutrophils # (1.3-7.7) k/uL Lymphocytes # (1.0-4.8) k/uL Monocytes # (0-1.0) k/uL Eosinophils # (0-0.7) k/uL Basophils # (0-0.2) k/uL Polychromasia Anisocytosis Macrocytosis PT 18.0 H (9.0-12.0) sec INR 1.9 (<1.1) APTT 30.7 H (22.0-30.0) sec Sodium (137-145) mmol/L Potassium (3.5-5.1) mmol/L Chloride (98-107) mmol/L Carbon Dioxide (22-30) mmol/L Anion Gap mmol/L BUN (9-20) mg/dL Creatinine (0.66-1.25) mg/dL Est GFR (MDRD) Af Amer (>60 ml/min/1.73 sqM) Est GFR (MDRD) Non-Af (>60 ml/min/1.73 sqM) Glucose (74-99) mg/dL Plasma Lactic Acid Puma (0.7-2.0) mmol/L Calcium (8.4-10.2) mg/dL Total Bilirubin (0.2-1.3) mg/dL AST (17-59) U/L ALT (21-72) U/L Alkaline Phosphatase (38-126) U/L Total Protein (6.3-8.2) g/dL Albumin (3.5-5.0) g/dL Lipase (23-300) U/L Urine Color Dark Brown Urine Appearance Cloudy (Clear) Urine pH 5.5 (5.0-8.0) Ur Specific [place] 1.025 (1.001-1.035) Urine Protein Trace H (Negative) Urine Glucose (UA) Negative (Negative) Urine Ketones Negative (Negative) Urine Blood Negative (Negative) Urine Nitrate Negative (Negative) Urine Bilirubin 2+ H (Negative) Urine Urobilinogen >12.0 (<2.0) mg/dL Ur Leukocyte Esterase Negative (Negative) Urine RBC 1 (0-5) /hpf Urine WBC 17 H (0-5) /hpf Urine Bacteria Rare H (None) /hpf Hyaline Casts 43 H (0-2) /lpf Urine Mucus Rare H (None) /hpf Disposition Clinical Impression: Abdominal distention, Ascites, MILA (acute kidney injury), Lactic acidosis, Transaminitis, Anticoagulated Disposition: ADMITTED IP TO THIS [facility] Condition: Fair Decision to Admit Reason: Admit from EC
[2017-01-28 15:49] LABS: Anisocytosis Slight; Basophils % (A) 1 %; CH 34.3; CHCM 32.4; Eosinophils # (A) 0.1 k/uL (0-0.7); Eosinophils % (A) 1 %; HCT 37.1 % (39.0-53.0); HDW 2.71; HGB 11.7 gm/dL (13.0-17.5); Luc # (Auto) 0.16; Luc % (Auto) 2; Lymphocytes # (A) 0.7 k/uL (1.0-4.8); Lymphocytes % (A) 9 %; MCH 33.8 pg (25.0-35.0); MCHC 31.7 g/dL (31.0-37.0); Macrocytosis Marked; Mean Platelet Volume 8.8; Monocytes # (A) 0.4 k/uL (0-1.0); Monocytes % (A) 5 %; Neutrophils # (A) 6.7 k/uL (1.3-7.7); Neutrophils % (A) 83 %; RBC 3.47 m/uL (4.30-5.90); RDW 17.1 % (11.5-15.5); WBC 8.1 k/uL (3.8-10.6); WBC (Perox) 8.41
[2017-01-28 15:50] LABS: INR 1.9 (<1.1); Partial Thromboplastin Time 30.7 sec (22.0-30.0)
[2017-01-28 15:52] LABS: Calcium 8.9 mg/dL (8.4-10.2); MCV 106.8 fL (80.0-100.0); Potassium 4.4 mmol/L (3.5-5.1); Total Bilirubin 8.3 mg/dL (0.2-1.3)
[2017-01-28] MEDS ORDERED: SODIUM CHLORIDE 0.9% 1,000 ML IV ONE (15:54)
--- NOTE | 2017-01-28 15:55 | XR ---
EXAMINATION TYPE: XR KUB DATE OF EXAM: 01/28/2017 3:50 PM CLINICAL HISTORY: Abdominal pain and distention for one week TECHNIQUE: 2 upright KUB images of the abdomen are obtained. COMPARISON: Abdominal x-ray and CT abdomen and pelvis January 20, 2017. FINDINGS: Scattered gas is seen in non-distended small bowel loops. Gas and fecal material is seen in non-distended colon. Some scattered vascular calcification is present. No pneumoperitoneum is iden tified. Lung bases are clear. Osseous structures are intact. IMPRESSION: Overall nonobstructive bowel gas pattern.
[2017-01-28 16:25] LABS: Polychromasia Present
--- NOTE | 2017-01-28 17:53 | CT ---
EXAMINATION TYPE: CT abdomen pelvis w con DATE OF EXAM: 01/28/2017 5:43 PM COMPARISON: 01/20/2017 HISTORY: Pt states of abdominal pain and vomiting. Recent dx of liver CA x1 week ago. CT DLP: 728.5 mGycm CONTRAST: CT scan of the abdomen and pelvis is performed with Oral Contrast and with IV Contrast, patient injec ronaldo with 100 mL of Omnipaque 300. FINDINGS: LUNG BASES-: No visible nodule. No infiltrate. LIVER/GB: Multiple hepatic lesions noted compatible with primary hepatocellular carcinoma or metastat ic disease. There is evidence for new onset ascites adjacent to the liver margin and extending into t he right paracolic gutter. Fluid is also seen within the pelvis. The gallbladder is unremarkable. PANCREAS: No inflammation. No distinct mass. SPLEEN: No splenic enlargement. No lesion seen. ADRENALS: No nodule. No thickening. KIDNEYS/BLADDER: No hydronephrosis. No nephrolithiasis. 1.2 cm cyst midpole right kidney. Left kid mike is unremarkable. Urinary bladder grossly unremarkable. BOWEL: Normal appendix. Normal bowel caliber. No inflammation. 3.6 cm low attenuating structure adj acent to the distal esophagus may reflect transient fluid or lymph node. GENITAL ORGANS: No gross abnormality. LYMPH NODES: No greater than 1cm abdominal or pelvic lymph nodes are appreciated. AORTA: No significant abnormality. OSSEOUS STRUCTURES: No significant abnormality is seen. OTHER: No significant additional abnormality is seen. IMPRESSION: 1. Stable hepatic lesions as discussed. 2. New onset ascites
[2017-01-28 18:03] LABS: Appearance,Urine Cloudy (Clear); Bacteria,Urine Rare /hpf; Bilirubin,Urine 2+ (Negative); Glucose,Urine (UA) Negative (Negative); Ketones,Urine Negative (Negative); Leukocyte Esterase,Urine Negative (Negative); Mucus,Urine Rare /hpf; Nitrite,Urine Negative (Negative); PH, Urine 5.5 (5.0-8.0); Particle Count 9831; Protein,Urine Trace (Negative); RBC,Urine 1 /hpf (0-5); Specific Gravity,Urine 1.025 (1.001-1.035); UA Billing (MACRO vs. MICRO) MICRO; Urobilinogen,Urine >12.0 mg/dL (<2.0); WBC,Urine 17 /hpf (0-5)
[2017-01-28] MEDS ORDERED: NALOXONE 0.4 MG/ML 1 ML VIAL IV PRN (18:43)
[2017-01-28] MEDS ORDERED: ONDANSETRON 4 MG/2 ML VIAL IVP PRN (18:43)
[2017-01-28] MEDS: RX INFO: IV CONTRAST WAS GIVEN 1 EACH MISC MISCELLANE PRN (19:46)
[2017-01-28] MEDS: MORPHINE SULFATE 4 MG/ML SYRINGE IV PRN (20:35)
[2017-01-28 20:46] VITALS: BMI 23.8
[2017-01-28] MEDS ORDERED: IPRATROPIUM-ALBUTEROL 3 ML NEB INHALATION PRN (23:31)
[2017-01-28] MEDS ORDERED: MELATONIN 3 MG TABLET PO PRN (23:32)
[2017-01-28] MEDS ORDERED: LORazepam 2 MG/ML SYRINGE IV PRN ×3 (23:37)
[2017-01-29] MEDS: MORPHINE SULFATE 4 MG/ML SYRINGE IV PRN ×2 (04:05→16:25)
[2017-01-29 08:03] LABS: Magnesium 2.2 mg/dL (1.6-2.3); Potassium 4.6 mmol/L (3.5-5.1); Total Bilirubin 7.2 mg/dL (0.2-1.3)
[2017-01-29 08:05] LABS: Anisocytosis Slight; CH 34.6; CHCM 32.1; HCT 31.4 % (39.0-53.0); HGB 10.3 gm/dL (13.0-17.5); MCH 35.6 pg (25.0-35.0); MCHC 32.7 g/dL (31.0-37.0); MCV 108.7 fL (80.0-100.0); Macrocytosis Marked; Mean Platelet Volume 9.8; RBC 2.89 m/uL (4.30-5.90); RDW 17.1 % (11.5-15.5)
[2017-01-29] MEDS: THIAMINE 100 MG TAB PO SCH (08:16)
[2017-01-29] MEDS: PANTOPRAZOLE 40 MG TABLET PO SCH (08:16)
[2017-01-29] MEDS: METOPROLOL SUCCINATE (ER) 50 MG TAB.ER.24H PO SCH (08:16)
[2017-01-29] MEDS: IPRATROPIUM-ALBUTEROL 3 ML NEB INHALATION SCH ×4 (09:09→20:36)
[2017-01-29] MEDS ORDERED: PHYTONADIONE ORAL 5 MG/5 ML ORAL.SYRG PO STA (11:26)
--- NOTE | 2017-01-29 11:55 | P.CONS ---
History of Present Illness - Reason for Consult Consult date: 01/29/17 ascites Requesting physician: Nestor Ware - History of Present Illness 56-year-old gentleman patient of Dr. Tanner admitted with increased abdominal distention and discomfort. Recently hospitalized a week ago for acute midepigastric abdominal pain, nausea, vomiting, jaundice, and elevated liver enzymes. Past medical history of atrial fibrillation with Coumadin monitoring, long-standing EtOH abuse, CHF, hyperlipidemia, hypertension, COPD, and occasional marijuana. Last dose of Coumadin 1 week ago. No current use of alcohol. Patient has noticed more yellowing of skin and darker urine over the last few days as well as increased abdominal bloatedness. Computed tomography scan abdomen pelvis yesterday reported ascites around the liver. No mentioning of intra-or extrahepatic biliary dilatation. During his last hospitalization he underwent a computed tomography scan abdomen and pelvis that reported multiple liver lesions without ductal dilatation. Follow-up liver MRI reported a filling defect consistent with clot in the portal venous system at the middle and left portal vein branches multiple liver lesions. Intra-/extra hepatic dilatation not mentioned. Tumor markers unremarkable AFP 4.1. CEA 2.0. Hepatitis panel negative. Total bilirubin on 01/20/2017 was 4.4 yesterday it increased to 8.3 currently 7.2. AST 285. ALT 85. Alkaline phosphates 344. Lipase 70. INR 1.9. BUN 43. Creatinine 1.9. White count 7. Hemoglobin 10.3. MCV 108. Platelet 163. Review of Systems Constitutional: Denies fever, chills, sweats, weight gain, or loss. HEENT: Negative for migraines, blurred vision or loss, earaches, drainage, tinnitus, oral mucosal lesions, dysphagia, or odynophagia. Cardiac: Atrial fibrillation. Heart failure. Hyperlipidemia. Hypertension. Denies chest pain. Respiratory: COPD. Her wanting usage. Negative for shortness of breath, hemoptysis, cough, or sputum production. Gastrointestinal: See HPI for pertinent findings. Genitourinary: Negative for hematuria, urgency, frequency, polyuria, dysuria, or penile discharge. Musculoskeletal: Osteoarthritis. Neurologic: Negative for stroke or TIA. Endocrine: Negative for thyroid problems. Skin: Negative for rash or itching. Psychiatric: Negative history for depression and anxiety All systems: negative (See HPI) Past Medical History Past Medical History: Atrial Fibrillation, Cancer, Heart Failure, COPD, Hyperlipidemia, Hypertension, Osteoarthritis (OA) Additional Past Medical History / Comment(s): liver CA, NEW ONSET AFIB History of Any Multi-Drug Resistant Organisms: None Reported Past Surgical History: No Surgical Hx Reported Past Anesthesia/Blood Transfusion Reactions: No Reported Reaction Past Psychological History: No Psychological Hx Reported Additional Psychological History / Comment(s): PT LIVES ALONE HAS 1 INDOOR PET( DOG).HAS 3 STEPS TO GET INTO HOUSE-HOUSE ON 1 LEVEL. 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 Smoking Status: Former smoker Past Alcohol Use History: Daily Additional Past Alcohol Use History / Comment(s): STARTED SMOKING 1984, QUIT FEW YEARS AGO, DRIKS 3-4 BEER PER DAY. Past Drug Use History: Marijuana - Past Family History Father Family Medical History: Cancer, Hyperlipidemia, Hypertension Additional Family Medical History / Comment(s): LEUKEMIA Mother Family Medical History: Myocardial Infarction ([place]) Medications and Allergies Home Medications Medication Instructions Recorded Confirmed Type Metoprolol Succinate [Toprol XL] 50 mg PO DAILY 01/20/17 01/28/17 History amLODIPine [Norvasc] 5 mg PO HS 01/20/17 01/28/17 History Allergies Allergy/AdvReac Type Severity Reaction Status Date / Time venom-honey bee AdvReac Severe Swelling Verified 01/28/17 13:57 [bee venom (honey bee)] Physical Exam Vitals: Vital Signs Temp Pulse Pulse Resp BP BP Pulse Ox 01/29/17 07:00 97.3 F L 66 16 111/65 90 L 01/29/17 00:00 75 16 01/28/17 20:21 98.2 F 75 16 130/65 96 01/28/17 19:07 71 18 108/58 96 Intake and Output 01/28/17 01/29/17 01/29/17 22:59 06:59 14:59 Intake Total 150 150 Balance 150 150 Intake: IV 150 150 Sodium Chloride 0.9% 1, 150 150 000 ml @ 75 mls/hr IV . [id number] STA Rx#:[id number] Other: Voiding Method Toilet Toilet Urinal Urinal # Voids 2 Weight 77.564 kg General appearance: The patient is alert, oriented, in no acute distress. Jaundice. HET: Head is normocephalic and atraumatic. Pupils are equal and reactive. Sclerae icterus. Oropharynx is clear without lesions. Neck: Supple without lymphadenopathy. Trachea midline. Heart: S1 S2. Regular rate and rhythm. Lungs: No crackles or wheezes are heard. Abdomen: Soft, distended with mild tenderness to midepigastrium right upper quadrant, mild ascites, with bowel sounds. No peritoneal signs. No palpable organomegaly or masses. Extremities: Normal skin color and turgor. No cyanosis, rash, ulceration, clubbing, or edema. Radial and pedal pulses are 2/4 bilaterally. Neurological: No focal deficits. Strength and sensation are grossly intact. Results CBC & Chem 7: 01/29/17 07:31 01/29/17 07:31 Labs: Abnormal Lab Results - Last 24 Hours (Table) 01/28/17 01/29/17 01/29/17 Range/Units 19:01 07:31 07:31 RBC 2.89 L (4.30-5.90) m/uL Hgb 10.3 L (13.0-17.5) gm/dL Hct 31.4 L (39.0-53.0) % MCV 108.7 H (80.0-100.0) fL MCH 35.6 H (25.0-35.0) pg RDW 17.1 H (11.5-15.5) % Sodium 133 L (137-145) mmol/L BUN 43 H (9-20) mg/dL Creatinine 1.92 H (0.66-1.25) mg/dL Plasma Lactic Acid Puma 3.2 H* (0.7-2.0) mmol/L Calcium 8.0 L (8.4-10.2) mg/dL Total Bilirubin 7.2 H (0.2-1.3) mg/dL AST 285 H (17-59) U/L ALT 85 H (21-72) U/L Alkaline Phosphatase 344 H (38-126) U/L Total Protein 6.0 L (6.3-8.2) g/dL Albumin 2.5 L (3.5-5.0) g/dL CT scan - abdomen: report reviewed (Reviewed by Dr. Pickard) CT scan - pelvis: report reviewed (Reviewed by Dr. Pickard) US - abdomen: pending Assessment and Plan (1) Jaundice Narrative/Plan: Suspect intrahepatic cholestasis secondary to underlying malignancy. Status: Acute (2) Ascites Status: Acute (3) Liver masses Narrative/Plan: HCC possible metastatic disease Status: Acute (4) Portal vein thrombosis Status: Acute (5) Coagulopathy Status: Acute (6) Acute kidney injury Status: Acute (7) ETOH abuse Status: Acute (8) Elevated liver enzymes Status: Acute Plan: 1. Ultrasound to assess if ascites requires paracentesis. 2. Ultrasound liver biopsy possibly tomorrow. Will provide vitamin K 5 mg oral 1 with repeat PT INR in a.m. 3. Diet as tolerated. 4. Worsening jaundice is felt to be related to an intrahepatic cholestatic process secondary to underlying malignancy in the liver. Biliary ductal tumor compression kept within the differential. At this time ERCP/biliary stenting is not immediately planned secondary to absence of intra-extra hepatic biliary dilatation on multiple abdominal imaging studies. Reconsideration for ERCP/ biliary stenting will be contingent on clinical course after liver biopsy is performed and review of morning liver coagulation chemistries. We'll discuss case with oncology. Thank you for this kind referral and the opportunity to participate in the care of your patient. This consultation was discussed with Dr. Pickard. The impression and plan of care have been directed as dictated.
--- NOTE | 2017-01-29 14:16 | US ---
EXAMINATION TYPE: US abdomen limited DATE OF EXAM: 01/29/2017 1:58 PM COMPARISON: 01/20/2017 CLINICAL HISTORY: ascites. TECHNOLOGIST IMPRESSION: Scanned all 4 quadrants: small amount of ascites seen in RUQ and RLQ, no fl uid seen in LUQ and LLQ. IMPRESSION: 1. Minimal ascites.
[2017-01-29] MEDS ORDERED: LEVOFLOXACIN 500MG-D5W PMX 500 MG in DEXTROSE/WATER 1 100ML.BAG IVPB SCH (15:00)
--- NOTE | 2017-01-29 17:36 | HP ---
DATE OF ADMISSION: 01/28/2017 DATE OF SERVICE: 01/29/2017 CHIEF COMPLAINT: Abdominal pain and bloating. HISTORY OF PRESENT ILLNESS: This 56-year-old gentleman with a past medical history of multiple medical problems, including history of atrial fibrillation, history of CHF, history of COPD, history of hypertension, family history of chronic systolic dysfunction, history of DJD, was admitted with abdominal pain. His recent CT scan showed evidence of possible hepatic mass. MRI followup showed suspected portal venous thrombus also. The patient was scheduled for liver biopsy tomorrow. Patient was admitted for further evaluation and treatment, because of bloating and abdominal pain also. Gastroenterology evaluation is in progress. There is no history of any fever, rigor or chills. Patient apparently was not taking any hard alcohol drinks, according to him; drinking about 2 to 3 beers a day. Lab-aguilar, the lactic acid is elevated at 3.2 and total bilirubin is 8.3 and 7.2. AST is also elevated. UA showed 17 WBCs. PAST MEDICAL HISTORY: 1. History of atrial fibrillation. 2. CHF. 3. COPD. 4. Hypertension. 5. Hyperlipidemia. 6. History of DJD. 7. Possible suspected liver mass. Medications prior to admission include: 1. Norvasc 5 mg at bedtime. 2. Vitamin B1 100 mg p.o. daily. 3. Prilosec 40 mg before breakfast. 4. Toprol XL 50 mg daily. ALLERGIES: HONEY BEES. FAMILY HISTORY: History of cancer, hyperlipidemia, hypertension, leukemia in the family. SOCIAL HISTORY: Previous history of smoking. Occasional alcohol intake. REVIEW OF SYSTEMS: ENT: No diminished vision. No diminished hearing. CARDIOVASCULAR SYSTEM: As mentioned earlier. RESPIRATORY SYSTEM: As mentioned earlier. GI: As mentioned earlier. : No dysuria. NERVOUS SYSTEM: No numbness or weakness. ALLERGY/IMMUNOLOGY: No asthma or hayfever. MUSCULOSKELETAL: As mentioned earlier. HEMATOLOGY/ONCOLOGY: No history of anemia. ENDOCRINE: As mentioned earlier. CONSTITUTIONAL: As mentioned earlier. DERMATOLOGY: Negative. RHEUMATOLOGY: Negative. PSYCHIATRY: As mentioned earlier. PHYSICAL EXAMINATION: Patient is alert and oriented x3. Pulse is 66, blood pressure 111/65, respiration 16, temperature 97.2, pulse ox 90% on room air. HEENT: Conjunctivae normal. Oral mucosa moist. icteric. NECK: No jugular venous distention. No carotid bruit. No lymph node enlargement. CARDIOVASCULAR SYSTEM: S1, S2 muffled. No S3. No S4. RESPIRATORY SYSTEM: Breath sounds diminished at the bases. Bilateral scattered rhonchi and crackles. ABDOMEN: Soft. Mild diffuse distention present. Flanks are dull. No mass palpable. LEGS: No edema. No swelling. NERVOUS SYSTEM: Higher functions as mentioned earlier. Moves all 4 limbs. No focal motor or sensory deficit. LYMPHATICS: No lymph node palpable in neck, axillae or groin. SKIN: No ulcer, rash, bleeding. LABS: WBC 7, hemoglobin 10.3, MCV 108.7. Sodium is 133. Creatinine is 1.92. Plasma lactic acid 3.2. LFTs are noted. ASSESSMENT: 1. Abdominal pain and distention with possibly primary hepatic malignancy versus metastasis with ascites. 2. Increased bilirubin with possible acute hepatitis, possibly secondary to alcoholic hepatitis or cirrhosis of liver. 3. Increased AST, ALT, alkaline phosphatase. 4. Increased plasma lactic acid. 5. Increased creatinine with possible acute renal failure, possible prerenal factors. 6. Hyponatremia. 7. Anemia, macrocytic, possibly secondary to alcohol. 8. History of ethanol. 9. History of nicotine dependence. 10. Hypoalbuminemia protein-calorie malnutrition. 11. History of atrial fibrillation. 12. History of congestive heart failure with chronic systolic dysfunction. 13. Chronic obstructive pulmonary disease. 14. Hypertension. 15. Hyperlipidemia. 16. History of degenerative joint disease. 17. History of tetrahydrocannabinol. 18. Coagulopathy possibly secondary to chronic liver disease. 19. FULL CODE. RECOMMENDATIONS AND DISCUSSION: In this 56-year-old gentleman who presented with multiple complex medical issues, we will monitor the patient closely, continue the current medications, continue with symptomatic treatment. Monitor PT and INR closely. Other than that, possible liver biopsy. Repeat labs. Will obtain gastroenterology as well as hematology/oncology consultations. Renal functions will be closely monitored. Patient's lactic acid also was elevated. I would recommend cultures and empiric antibiotics also. See orders for further details. Overall prognosis extremely guarded because of multiple complex medical issues. Further recommendations to follow. A copy of this dictation is being forwarded to Dr. Beryl Baeza, who is the primary physician. [facility] HOSPITALJeremy
--- NOTE | 2017-01-29 19:36 | P.CONS ---
History of Present Illness - Reason for Consult Consult date: 01/29/17 liver lesions Requesting physician: Latesha Curiel - Chief Complaint abd pain and distension - History of Present Illness Mr. De León is a very pleasant male pt who we have seen intermittently on an outpatient basis for INR monitoring for history of a-fib, we may seen him 2-4 times a year. He has uncontrolled hypertension and in general does not have regular medical monitoring. Over the last 2-3 weeks pt has been having right upper quadrant, epigastric abd pain associated with bloating, dark urine and decreased appetite, the pain is aching, constant, worse with eating and drinking so his oral intake has been very poor, laying still is the only thing that minimizes the pain, pain meds are helping some here in the hospital, pt has no idea what is going on but he wants to find out quickly. He was seen last week inpatient for abd symptoms, he was worked up for suspect choleycystitis but unfortunately he was found to have liver mass, plan was for biopsy tomorrow as pt had to hold coumadin. At this time pt would like something to drink but is not hungry. His pain is restricting his activity. He denies fevers, vomiting, diarrhea, constipation or bleeding. Review of Systems All systems: negative Constitutional: Reports as per HPI Past Medical History Past Medical History: Atrial Fibrillation, Heart Failure, COPD, Hyperlipidemia, Hypertension, Osteoarthritis (OA) Additional Past Medical History / Comment(s): NEW ONSET AFIB History of Any Multi-Drug Resistant Organisms: None Reported Past Surgical History: No Surgical Hx Reported Past Anesthesia/Blood Transfusion Reactions: No Reported Reaction Past Psychological History: No Psychological Hx Reported Additional Psychological History / Comment(s): PT LIVES ALONE HAS 1 INDOOR PET( DOG).HAS 3 STEPS TO GET INTO HOUSE-HOUSE ON 1 LEVEL. 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 Smoking Status: Former smoker Past Alcohol Use History: Daily Additional Past Alcohol Use History / Comment(s): STARTED SMOKING 1984, QUIT FEW YEARS AGO, DRIKS 3-4 BEER PER DAY. Past Drug Use History: Marijuana - Past Family History Father Family Medical History: Cancer, Hyperlipidemia, Hypertension Additional Family Medical History / Comment(s): LEUKEMIA Mother Family Medical History: Myocardial Infarction (PR) Medications and Allergies Home Medications Medication Instructions Recorded Confirmed Type Metoprolol Succinate [Toprol XL] 50 mg PO DAILY 01/20/17 01/28/17 History amLODIPine [Norvasc] 5 mg PO HS 01/20/17 01/28/17 History Allergies Allergy/AdvReac Type Severity Reaction Status Date / Time venom-honey bee AdvReac Severe Swelling Verified 01/28/17 13:57 [bee venom (honey bee)] Physical Exam Vitals: Vital Signs Temp Pulse Pulse Resp BP Pulse Ox 01/29/17 16:20 72 01/29/17 16:14 72 01/29/17 15:00 98.4 F 66 16 115/63 94 L 01/29/17 07:00 97.3 F L 66 16 111/65 90 L 01/29/17 00:00 75 16 01/28/17 20:21 98.2 F 75 16 130/65 96 Intake and Output 01/29/17 01/29/17 01/29/17 06:59 14:59 22:59 Intake Total 150 300 Balance 150 300 Intake: IV 150 300 Sodium Chloride 0.9% 1, 150 300 000 ml @ 75 mls/hr IV . [id number] [facility] Rx#:[id number] Other: Voiding Method Toilet Toilet Toilet Urinal Urinal Urinal # Voids 2 1 - Constitutional General appearance: cooperative, mild distress - EENT Eyes: scleral icterus ENT: hearing grossly normal, normal oropharynx - Neck Neck: no lymphadenopathy - Respiratory Respiratory: bilateral: CTA - Cardiovascular Rhythm: irregularly irregular Heart sounds: normal: S1, S2 leg Peripheral Edema: bilateral: None - Gastrointestinal venous prominence noted on entire abd General gastrointestinal: no absent bowel sounds, no decreased bowel sounds, distended, no hepatomegaly, no hyperactive bowel sounds, normal bowel sounds, no organomegaly, no rigid, no scaphoid, soft, no splenomegaly, tenderness, no umbilical hernia, no ventral hernia - Integumentary Integumentary: jaundiced - Neurologic Neurologic: CNII-XII intact - Musculoskeletal Musculoskeletal: strength equal bilaterally - Psychiatric Psychiatric: A&O x's 3, appropriate affect, intact judgment & insight Results CBC & Chem 7: 01/29/17 07:31 01/29/17 07:31 Labs: Abnormal Lab Results - Last 24 Hours (Table) 01/28/17 01/29/17 01/29/17 Range/Units 19:01 07:31 07:31 RBC 2.89 L (4.30-5.90) m/uL Hgb 10.3 L (13.0-17.5) gm/dL Hct 31.4 L (39.0-53.0) % MCV 108.7 H (80.0-100.0) fL MCH 35.6 H (25.0-35.0) pg RDW 17.1 H (11.5-15.5) % Sodium 133 L (137-145) mmol/L BUN 43 H (9-20) mg/dL Creatinine 1.92 H (0.66-1.25) mg/dL Plasma Lactic Acid Puma 3.2 H* (0.7-2.0) mmol/L Calcium 8.0 L (8.4-10.2) mg/dL Total Bilirubin 7.2 H (0.2-1.3) mg/dL AST 285 H (17-59) U/L ALT 85 H (21-72) U/L Alkaline Phosphatase 344 H (38-126) U/L Total Protein 6.0 L (6.3-8.2) g/dL Albumin 2.5 L (3.5-5.0) g/dL Comments: recent hospitalization notes reviewed Chest x-ray: report reviewed CT scan - abdomen: report reviewed CT scan - pelvis: report reviewed US - abdomen: report reviewed Assessment and Plan (1) Ascites Narrative/Plan: Order placed for pt to be evaluated for paracentesis Status: Acute (2) Liver masses Narrative/Plan: Pt has been off coumadin for almost a week as he was sched for liver biopsy tomorrow for path and diagnosis Status: Acute (3) Elevated liver function tests Narrative/Plan: related to disease in the liver, stable at this time, pt being hydrated Status: Acute (4) Jaundice Status: Acute (5) Coagulopathy Narrative/Plan: Pt was given vit K in anticipation of liver biopsy tomorrow, pt liver dysfunction and recent poor oral intake is contributing to his prolonged anticoagulation. Status: Acute Plan: We will await biopsy results
[2017-01-29] MEDS: amLODIPine 5 MG TAB PO SCH (20:52)
[2017-01-30] MEDS: IPRATROPIUM-ALBUTEROL 3 ML NEB INHALATION SCH ×4 (08:16→20:22)
[2017-01-30 09:03] LABS: Prothrombin Time 18.9 sec (9.0-12.0)
[2017-01-30 09:11] LABS: Calcium 8.2 mg/dL (8.4-10.2); Magnesium 2.4 mg/dL (1.6-2.3); Potassium 4.5 mmol/L (3.5-5.1); Total Bilirubin 8.7 mg/dL (0.2-1.3); Total Protein 6.1 g/dL (6.3-8.2)
[2017-01-30 09:17] LABS: Anisocytosis Slight; Basophils # (A) 0.1 k/uL (0-0.2); Basophils % (A) 1 %; CH 34.8; Eosinophils % (A) 0 %; HCT 33.7 % (39.0-53.0); HDW 2.67; HGB 10.8 gm/dL (13.0-17.5); Immature Gran Flag Slight; Luc # (Auto) 0.13; Luc % (Auto) 2; Lymphocytes # (A) 0.6 k/uL (1.0-4.8); Lymphocytes % (A) 7 %; MCV 109.7 fL (80.0-100.0); Macrocytosis Marked; Mean Platelet Volume 9.9; Monocytes # (A) 0.4 k/uL (0-1.0); Monocytes % (A) 4 %; Neutrophils # (A) 7.4 k/uL (1.3-7.7); Neutrophils % (A) 87 %; RBC 3.07 m/uL (4.30-5.90); RDW 17.1 % (11.5-15.5); WBC 8.6 k/uL (3.8-10.6); WBC (Perox) 9.14
[2017-01-30] MEDS: METOPROLOL SUCCINATE (ER) 50 MG TAB.ER.24H PO SCH (09:32)
[2017-01-30] MEDS: PANTOPRAZOLE 40 MG TABLET PO SCH (09:32)
[2017-01-30] MEDS: THIAMINE 100 MG TAB PO SCH (09:32)
[2017-01-30 09:46] LABS: Manual Review Performed
--- NOTE | 2017-01-30 11:34 | P.PN ---
Subjective Principal diagnosis: Obstructive jaundice liver masses 56-year-old male with a history of EtOH abuse admitted with abdominal distention , ascites on CT, worsening of jaundice with multiple liver masses. Received oral vitamin K yesterday for INR 1. 9 repeat this morning is 2.0. Afebrile. Reports generalized abdominal discomfort no nausea vomiting. Intermittent constipation. Total bilirubin increased to 8.7 today. AST 476. ALT 110. Alkaline phosphatase 329. Ammonia 10. Ultrasound abdomen reported no appreciable ascites for percutaneous drainage. Objective - Vital Signs Vital signs: Vital Signs Temp 97.7 F 01/30/17 07:00 Pulse 72 01/30/17 08:27 Resp 16 01/30/17 07:00 BP 102/56 01/30/17 07:00 Pulse Ox 95 01/30/17 07:00 Intake & Output 01/29/17 01/30/17 01/30/17 18:59 06:59 18:59 Intake Total 300 Balance 300 Intake: IV 300 Sodium Chloride 0.9% 1, 300 000 ml @ 75 mls/hr IV . [id number] [facility] Rx#:[id number] Other: Voiding Method Toilet Toilet Toilet Urinal Urinal Urinal # Voids 1 1 - Exam General appearance: The patient is alert, oriented, in no acute distress. Jaundice. HET: Head is normocephalic and atraumatic. Pupils are equal and reactive. Sclerae icterus. Oropharynx is clear without lesions. Neck: Supple without lymphadenopathy. Trachea midline. Heart: S1 S2. Regular rate and rhythm. Lungs: No crackles or wheezes are heard. Abdomen: Soft, distended with mild tenderness to midepigastrium right upper quadrant, mild ascites, with bowel sounds. No peritoneal signs. No palpable organomegaly or masses. Extremities: Normal skin color and turgor. No cyanosis, rash, ulceration, clubbing, or edema. Radial and pedal pulses are 2/4 bilaterally. Neurological: No focal deficits. Strength and sensation are grossly intact. - Labs CBC & Chem 7: 01/30/17 08:21 01/30/17 08:21 Labs: Abnormal Lab Results - Last 24 Hours (Table) 01/30/17 01/30/17 01/30/17 Range/Units 08:21 08:21 08:21 RBC 3.07 L (4.30-5.90) m/uL Hgb 10.8 L (13.0-17.5) gm/dL Hct 33.7 L (39.0-53.0) % MCV 109.7 H (80.0-100.0) fL RDW 17.1 H (11.5-15.5) % Lymphocytes # 0.6 L (1.0-4.8) k/uL PT 18.9 H (9.0-12.0) sec Sodium 131 L (137-145) mmol/L Chloride 95 L (98-107) mmol/L BUN 55 H (9-20) mg/dL Creatinine 2.77 H (0.66-1.25) mg/dL Glucose 112 H (74-99) mg/dL Calcium 8.2 L (8.4-10.2) mg/dL Magnesium 2.4 H (1.6-2.3) mg/dL Total Bilirubin 8.7 H (0.2-1.3) mg/dL AST 476 H (17-59) U/L ALT 110 H (21-72) U/L Alkaline Phosphatase 329 H (38-126) U/L Total Protein 6.1 L (6.3-8.2) g/dL Albumin 2.6 L (3.5-5.0) g/dL Microbiology - Last 24 Hours (Table) 01/29/17 16:30 Urine Culture - Preliminary Urine,Voided Assessment and Plan (1) Jaundice Narrative/Plan: Suspect intrahepatic cholestasis secondary to underlying malignancy. Status: Acute (2) Ascites Status: Acute (3) Liver masses Narrative/Plan: HCC possible metastatic disease Status: Acute (4) Portal vein thrombosis Status: Acute (5) Coagulopathy Status: Acute (6) Acute kidney injury Status: Acute (7) ETOH abuse Status: Acute (8) Elevated liver enzymes Status: Acute Plan: 1. CT-guided Liver biopsy with interventional radiology. Case discussed with Dr. Merritt will provide 2 units of FFP prior to procedure and 2 units of FFP post procedure. 2. Stool softeners for constipation. Assessment and plan of care discussed with Dr. Pickard.
[2017-01-30] MEDS: SENNOSIDES-DOCUSATE SODIUM 1 EACH TAB PO SCH ×2 (12:54→21:46)
[2017-01-30] MEDS: SODIUM CHLORIDE 0.9% 1,000 ML IV SCH (16:12)
[2017-01-30] MEDS: LEVOFLOXACIN 250MG-D5W PMX 250 MG in DEXTROSE/WATER 1 50ML.BAG IVPB SCH (16:12)
--- NOTE | 2017-01-30 17:21 | XR ---
EXAMINATION TYPE: XR abdomen acute w cxr DATE OF EXAM: 01/30/2017 5:07 PM COMPARISON: CT abdomen and pelvis dated 01/28/2017 and 01/20/2017. Chest radiograph dated 01/20/2017. HISTORY: Abdominal distention and new ascites on recent CT dated 01/28/2017. TECHNIQUE: Frontal chest radiograph, supine abdominal radiograph, and upright abdominal radiographs were obtained. FINDINGS: The lungs are clear without evidence of focal consolidation, pneumothorax, or pleural effu andre. Cardiomediastinal silhouette is within normal limits of size. Osseous structures are intact. There is no evidence for pneumoperitoneum. Residual contrast is seen throughout the colon containing an air-fluid level from the prior CT on 01/28/2017. The colon is nondilated measuring up to 5.8 cm. T he appendix is also partially filled with contrast. Atheromatous vascular changes are noted within th e abdomen and pelvis. There is a nonobstructive bowel gas pattern. Degenerative changes are appreciat ed of the lumbosacral spine and femoral acetabular joints. The bowel loops are displaced centrally an d there is a widened properitoneal stripe compatible with the small amount of known abdominal ascites . IMPRESSION: 1. Nonobstructive bowel gas pattern. 2. Residual contrast noted within the colon and a single layering air-fluid level may relate to colon ic ileus. 3. No acute cardiopulmonary pathology. 4. Secondary findings of minimal abdominal ascites.
--- NOTE | 2017-01-30 19:17 | PN ---
DATE OF SERVICE: 01/30/2017 This 56-year-old gentleman who was admitted with abdominal pain and distention also had a primary hepatic malignancy. The patient also had increased bilirubin with possible acute hepatitis. The patient has been slated to have a liver biopsy as well. Abdominal ultrasound was done yesterday which showed minimal ascites only; mostly gaseous distention noted. Past medical history reviewed. REVIEW OF SYSTEMS: CARDIOVASCULAR SYSTEM: No angina, palpitations. RESPIRATORY SYSTEM: As mentioned earlier. GI: As mentioned earlier. : No dysuria. NERVOUS SYSTEM: No numbness or weakness. Current medications are reviewed and include: 1. DuoNeb q.i.d. and p.r.n. 2. Norvasc 5 mg at bedtime. 3. Levaquin. 4. Ativan. 5. Melatonin. 6. Toprol XL. 7. Narcan. 8. Protonix. 9. Vitamin B1. PHYSICAL EXAMINATION: Patient is alert and oriented x3. Pulse 66, blood pressure 107/60, respiration 16, temperature 97.3, pulse ox 98% on room air. HEENT: Conjunctivae normal. NECK: No jugular venous distention. CARDIOVASCULAR SYSTEM: S1, S2 muffled. RESPIRATORY SYSTEM: Breath sounds diminished at the bases. A few scattered rhonchi. No crackles. ABDOMEN: Soft. Gaseous distention present. Dilated veins over the abdominal wall present. No mass palpable. The flanks are dull. Bowel sounds are present. LEGS: No edema. No swelling. NERVOUS SYSTEM: Higher functions as mentioned earlier. Moves all 4 limbs. No focal motor or sensory deficit. LYMPHATICS: No lymph node palpable in neck, axillae or groin. SKIN: No ulcer, rash, bleeding. LABS: WBC 8.6, hemoglobin 10.8. Creatinine is 2.77. Plasma lactic acid 3.2. Total bilirubin is 8.7. LFTs are noted. ASSESSMENT: 1. Abdominal pain with distention with possible primary hepatic malignancy, worsening metastatic lesion with ascites. 2. Possible sepsis. 3. Increased bilirubin with possible acute hepatitis, possibly secondary to alcoholic hepatitis or cirrhosis of the liver. 4. Increased AST, ALT, alkaline phosphatase. 5. Increased plasma lactic acid. 6. Increased creatinine with possible acute renal failure, possible prerenal factors. 7. Hyponatremia. 8. Anemia, macrocytic, possibly secondary to alcohol. 9. History of ethanol. 10. History of nicotine dependence. 11. Hypoalbuminemia with mild protein-calorie malnutrition. 12. History of atrial fibrillation. 13. History of congestive heart failure with chronic systolic dysfunction. 14. History of chronic obstructive pulmonary disease. 15. Hypertension. 16. Hyperlipidemia. 17. History of degenerative joint disease. 18. History of tetrahydrocannabinol. 19. Coagulopathy secondary to chronic liver disease. 20. FULL CODE. RECOMMENDATIONS AND DISCUSSION: I recommend to continue with the current medications, continue with symptomatic treatment. Otherwise, the patient is scheduled to have a liver biopsy. Will closely follow with Gastroenterology as well as Hematology/Oncology. I will also obtain an infectious disease and nephrology evaluations. Once again, the prognosis is guarded. I would recommend a set of cultures. Patient was started the empiric antibiotics already, but will monitor the patient closely with ID. Further recommendations to follow.
[2017-01-30] MEDS: amLODIPine 5 MG TAB PO SCH (21:46)
[2017-01-31 07:45] LABS: INR 1.9 (<1.1); Prothrombin Time 18.7 sec (9.0-12.0)
[2017-01-31 07:48] LABS: Anisocytosis Slight; CHCM 32.4; HCT 32.5 % (39.0-53.0); HDW 2.83; HGB 10.6 gm/dL (13.0-17.5); Immature Gran Flag Moderate; MCH 35.7 pg (25.0-35.0); MCHC 32.6 g/dL (31.0-37.0); MCV 109.4 fL (80.0-100.0); Macrocytosis Marked; RBC 2.98 m/uL (4.30-5.90); RDW 17.9 % (11.5-15.5); WBC 9.2 k/uL (3.8-10.6); WBC (Perox) 9.45
[2017-01-31 07:59] LABS: Calcium 8.4 mg/dL (8.4-10.2); Potassium 4.9 mmol/L (3.5-5.1); Total Bilirubin 11.3 mg/dL (0.2-1.3); Total Protein 6.1 g/dL (6.3-8.2)
[2017-01-31] MEDS: IPRATROPIUM-ALBUTEROL 3 ML NEB INHALATION SCH ×4 (08:25→19:20)
[2017-01-31 08:43] LABS: Add Differential Manual Differential
[2017-01-31 08:46] LABS: Manual Review Performed; Nucleated Red Blood Cells 0 /100 WBC (0-0); Total Cells Counted 100
[2017-01-31] MEDS ORDERED: HYDROmorphone 1 MG/ML 1 ML SYRINGE IVP STA (09:20)
[2017-01-31] MEDS: SENNOSIDES-DOCUSATE SODIUM 1 EACH TAB PO SCH ×2 (10:24→20:11)
[2017-01-31] MEDS: PANTOPRAZOLE 40 MG TABLET PO SCH (10:24)
[2017-01-31] MEDS: METOPROLOL SUCCINATE (ER) 50 MG TAB.ER.24H PO SCH (10:24)
[2017-01-31] MEDS: THIAMINE 100 MG TAB PO SCH (10:24)
--- NOTE | 2017-01-31 11:50 | CT ---
EXAMINATION TYPE: CT guided FNA DATE OF EXAM: 01/31/2017 10:09 AM COMPARISON: NONE HISTORY: liver bx CT DLP: 1554.0mGycm PROCEDURE: The risks, applications, benefits and alternatives, were discussed with the patient and questions wer e answered. Informed consent was obtained. The patient was placed supine on the fluoroscopic table, prepped and draped in the usual sterile fashion. A 22-gauge system was utilized with direct passage of the needle into the right lobe liver lesion un abundio CT guidance. Samples were obtained with fine needle aspiration. Pathology confirmed adequate sa mple. The patient was stable throughout procedure and remained stable upon discharge from radiology. All e lements of maximal barrier and sterile technique were utilized. IMPRESSION: 1. Successful right lobe liver mass fine needle aspiration under CT guidance.
--- NOTE | 2017-01-31 13:33 | P.PN ---
Subjective Principal diagnosis: Obstructive jaundice liver masses 56-year-old male with a history of EtOH abuse admitted with abdominal distention , ascites on CT, worsening of jaundice with multiple liver masses. status post liver biopsy. bilirubin increased today 11.3. Objective - Vital Signs Vital signs: Vital Signs Temp 97.6 F 01/31/17 13:05 Pulse 75 01/31/17 13:05 Resp 16 01/31/17 13:05 BP 125/76 01/31/17 13:05 Pulse Ox 95 01/31/17 11:36 Intake & Output 01/30/17 01/31/17 01/31/17 18:59 06:59 18:59 Intake Total 400 1700 947 Balance 400 1700 947 Intake: IV 400 .9@50 400 Intake, IV Titration 400 Amount Sodium Chloride 0.9% 1, 400 000 ml @ 50 mls/hr IV . Q20H [facility] Rx#:[id number] Oral 1300 Blood Product 947 Ffp 24 Cpd Unit 318 [id number] Ffp 24 Cpd Unit 328 [id number] Ffp 24 Cpd Unit 301 [id number] Other: Voiding Method Toilet Toilet Toilet Urinal Urinal Urinal # Voids 1 - Exam General appearance: The patient is alert, oriented, in no acute distress. Jaundice. HET: Head is normocephalic and atraumatic. Pupils are equal and reactive. Sclerae icterus. Oropharynx is clear without lesions. Neck: Supple without lymphadenopathy. Trachea midline. Heart: S1 S2. Regular rate and rhythm. Lungs: No crackles or wheezes are heard. Abdomen: Soft, distended with mild tenderness to midepigastrium right upper quadrant, mild ascites, with bowel sounds. No peritoneal signs. No palpable organomegaly or masses. Extremities: Normal skin color and turgor. No cyanosis, rash, ulceration, clubbing, or edema. Radial and pedal pulses are 2/4 bilaterally. Neurological: No focal deficits. Strength and sensation are grossly intact. - Labs CBC & Chem 7: 01/31/17 07:06 01/31/17 07:06 Labs: Abnormal Lab Results - Last 24 Hours (Table) 01/31/17 01/31/17 01/31/17 Range/Units 07:06 07:06 07:06 RBC 2.98 L (4.30-5.90) m/uL Hgb 10.6 L (13.0-17.5) gm/dL Hct 32.5 L (39.0-53.0) % MCV 109.4 H (80.0-100.0) fL MCH 35.7 H (25.0-35.0) pg RDW 17.9 H (11.5-15.5) % Neutrophils # (Manual) 8.1 H (1.3-7.7) k/uL Lymphocytes # (Manual) 0.6 L (1.0-4.8) k/uL PT 18.7 H (9.0-12.0) sec Sodium 131 L (137-145) mmol/L Chloride 97 L (98-107) mmol/L Carbon Dioxide 21 L (22-30) mmol/L BUN 64 H (9-20) mg/dL Creatinine 2.98 H (0.66-1.25) mg/dL Total Bilirubin 11.3 H (0.2-1.3) mg/dL AST 596 H (17-59) U/L ALT 125 H (21-72) U/L Alkaline Phosphatase 317 H (38-126) U/L Total Protein 6.1 L (6.3-8.2) g/dL Albumin 2.5 L (3.5-5.0) g/dL Microbiology - Last 24 Hours (Table) 01/29/17 16:30 Urine Culture - Final Urine,Voided 01/29/17 15:45 Blood Culture - Preliminary Blood No Growth after 24 hours Assessment and Plan (1) Jaundice Narrative/Plan: Worsening jaundice. Suspect intrahepatic cholestasis secondary to underlying malignancy. Status: Acute (2) Ascites Status: Acute (3) Liver masses Narrative/Plan: HCC possible metastatic disease. status post liver biopsy. Status: Acute (4) Portal vein thrombosis Status: Acute (5) Coagulopathy Status: Acute (6) Acute kidney injury Status: Acute (7) ETOH abuse Status: Acute (8) Elevated liver enzymes Status: Acute Plan: 1. Await liver bx results. Increased bilirubin will continue to follow. CMP am. 2. Stool softeners for constipation. Assessment and plan of care discussed with Dr. Lux.
[2017-01-31] MEDS: LEVOFLOXACIN 250MG-D5W PMX 250 MG in DEXTROSE/WATER 1 50ML.BAG IVPB SCH (15:37)
[2017-01-31] MEDS: SODIUM CHLORIDE 0.9% 1,000 ML IV SCH (17:26)
--- NOTE | 2017-01-31 19:15 | PN ---
DATE OF SERVICE: 01/31/2017 This 56-year-old gentleman admitted with abdominal pain and distention also has suspected hepatic malignancy. The patient had a liver biopsy today. Patient has elevated bilirubin. The patient also has abdominal distention, which was thought to be nonspecific at this time. Needle aspiration and final biopsy pending at this time. PAST MEDICAL HISTORY: Reviewed. REVIEW OF SYSTEMS: CARDIOVASCULAR: No angina. RESPIRATORY: As mentioned earlier. GI: As mentioned earlier. : No nausea. NERVOUS SYSTEM: No numbness or weakness. Current medications are reviewed and include: 1. DuoNeb q.i.d. and p.r.n. 2. Norvasc 5 mg q.h.s. 3. Levaquin. 4. Ativan 1 mg q.2 p.r.n. 5. Melatonin 3 mg q.h.s. 6. Toprol-XL 50 mg p.o. daily. 7. Narcan. 8. Protonix. 9. Senokot S. 10. Vitamin B 100 mg p.o. daily. PHYSICAL EXAMINATION: Patient is alert and oriented x3. Pulse 74, blood pressure 120/80, respiratory rate 16, temperature 97 degrees, pulse ox 97% on room air. HEENT: Conjunctivae mild icterus. NECK: No jugular venous distention. CARDIOVASCULAR: S1 and S2, muffled. RESPIRATORY: Breath sounds diminished at the bases. No rhonchi, no crackles. ABDOMEN: Soft, mild diffuse distention present. Mild diffuse discomfort. no guarding. No rigidity. No mass palpable. LEGS: No edema, no swelling. NERVOUS SYSTEM: No focal deficits. LABS: WBC 9.8, hemoglobin 10.6, creatinine is 2.98, bilirubin is 11.3. ASSESSMENT: 1. Abdominal pain and distention with possibly primary hepatic malignancy worsening with metastatic lesion ascites. 2. Acute hepatitis and hyperbilirubinemia. 3. Possible sepsis, present on admission. 4. Increased bilirubin with possible acute hepatitis, possibly secondary to alcoholic hepatitis and cirrhosis of the liver. 5. Increased AST, ALT and alkaline phosphatase. 6. Increased lactic acid. 7. Acute renal failure with possibly prerenal factors and secondary to sepsis. 8. Hypernatremia. 9. Anemia, normocytic, possibly secondary to alcohol. 10. Abdominal distention, possibly nonspecific ileus. 11. History of EtOH. 12. History of nicotine dependence. 13. Hypoalbuminemia with mild to moderate protein calorie malnutrition. 14. History of atrial fibrillation. 15. History of congestive heart failure with chronic systolic dysfunction. 16. History of chronic obstructive pulmonary disease. 17. Hypertension. 18. Hyperlipidemia. 19. History of degenerative joint disease. 20. History of tetrahydrocannabinol. 21. secondary to chronic liver disease. 22. FULL CODE. RECOMMENDATIONS AND DISCUSSION: In this 56-year-old gentleman who presented with multiple complex medical issues, we will monitor the patient closely. Continue the current medications. Continue symptomatic treatment. Otherwise, at this time I would recommend continue with empiric antibiotics and multiple consultations sought at this time. Infectious Disease and as well as Nephrology to follow the patient closely. Guarded prognosis because of multiple complex medical issues. FNA results are pending at this time. The patient is FULL CODE. Discussed with daughter at the bedside at length. Will await Dr. Mcnulty's input and further recommendations to follow. PATRICIO
[2017-01-31] MEDS: MORPHINE SULFATE 4 MG/ML SYRINGE IV PRN (20:12)
[2017-01-31] MEDS: amLODIPine 5 MG TAB PO SCH (20:12)
--- NOTE | 2017-01-31 22:20 | CONS ---
DATE OF CONSULTATION: 01/31/2017 REASON FOR CONSULTATION: Possible sepsis. HISTORY OF PRESENT ILLNESS: The patient is a 56-year-old male who was recently admitted to [facility] last week. The patient presented with abdominal distention and some right upper quadrant pain for which the patient was worked up for possible acute cholecystitis; however, on investigation, he was noticed to have multiple liver masses. He did have tumor markers done which came back to be negative and biopsy was advised; however, this could not be done, as the patient was on Coumadin. Coumadin was put on hold and the biopsy was supposed to be done as an outpatient. However, the patient presented back to the [facility] ER on 01/28/2017 in which he complains of more abdominal distention, bloating and some mild discomfort in the right upper quadrant area, about 2 to 3 out of 10 and no radiation. The patient did have an episode of nausea and vomiting, but no diarrhea. The patient is constipated. The patient denies any high-grade fever, rigors or chills. Subsequently, the patient has been evaluated by the ER physician. The patient did have a repeat CT of abdomen and pelvis done on 01/28/2017 which showed multiple hepatic lesions noted compatible with primary hepatocellular carcinoma or metastatic disease and there is evidence of new onset ascites. Gallbladder was unremarkable. An ultrasound subsequently showed minimal ascites; hence, paracentesis was not done. Patient remains to be afebrile during this hospital stay and his white count has been normal. He did have blood culture on admission that remains to be negative. Levaquin was added yesterday. I was asked to see the patient for concern for possible sepsis. The patient did have a CT-guided needle biopsy of his liver lesion. The patient was seen post procedure where the patient complained of some mild discomfort, but no nausea, no vomiting and no diarrhea. REVIEW OF SYSTEMS: CONSTITUTIONAL: Positive for weakness, but no fever recorded. EYES: No complaint. ENT: No complaint. RESPIRATORY: Some shortness of breath. CARDIOVASCULAR: No complaint. GENITOURINARY: No complaint. GASTROINTESTINAL: As per HPI. MUSCULOSKELETAL: No complaint. INTEGUMENTARY: No complaint. PSYCHOLOGIC: No complaint. ENDOCRINE: No complaint. NEUROLOGIC: No complaint. PAST MEDICAL HISTORY: Hypertension, hyperlipidemia, COPD, atrial fibrillation, osteoarthritis. PAST SURGICAL HISTORY: No major surgery. SOCIAL HISTORY: The patient quit smoking a few years ago. He drinks about 4 beers per day and did admit to marijuana use. FAMILY HISTORY: Father with a history of leukemia, hypertension, hyperlipidemia. Mother with history of [place]. ALLERGIES TO [place] OF [place]. No known drug allergies. Medications currently include patient is on: 1. DuoNeb. 2. Norvasc. 3. Ativan. 4. Melatonin. 5. Toprol-XL. 6. Morphine sulfate. 7. Narcan. 8. Zofran. 9. Protonix. 10. Senokot. 11. Vitamin B1. On examination, blood pressure is 111/70 with a pulse of 72, temperature 97.9. He is 99% on room air. General description is a middle-aged male, up in the bed in no distress. No tachypnea or accessory muscle of respiration use. HEENT: Scleral icterus is positive. Oral mucous membranes dry. NECK: Trachea central. No thyromegaly. LUNGS: Unlabored breathing. Clear to auscultation anteriorly. No wheeze or crackle. HEART: S1, S2. Regular rate and rhythm. ABDOMEN: Soft, no tenderness. Slightly distended. No guarding or rigidity. EXTREMITIES: No edema of feet. SKIN: No rash or mass palpable. NEUROLOGICAL: The patient is awake, alert, oriented x3. Mood and affect normal. LABS: BUN is 64 with a creatinine of 2.9. His hemoglobin is 10.6, white count 9.2. His bilirubin is 11.3. AST of 596, ALT is 125. A UA has been done which was negative, only 17 WBCs. Blood and urine culture so far negative. DIAGNOSTIC IMPRESSION: Patient admitted to hospital with abdominal bloating, distention, pain and nausea with evidence of jaundice with multiple masses in the liver, likely representing a possible malignancy with a question of possible primary hepatocellular carcinoma versus secondary metastases in a patient who did have workup, including tumor markers, which are negative so far, status post liver biopsy completed today. Clinical suspicion for infectious etiology remains to be low, as the patient is not running any fever, did not have an elevated white count and no clinical signs suspicious for infection with blood and urine cultures remaining to be negative. PLAN: 1. Discontinue Levaquin ( ). 2. The patient will monitor closely. If he spikes any fever, any jump in the white count, appropriate cultures will be obtained and he will be started on appropriate antibiotic at that point. 3. Thank you for this consultation. Will follow this patient along with you.
[2017-02-01] MEDS: MORPHINE SULFATE 4 MG/ML SYRINGE IV PRN ×2 (07:37→15:13)
[2017-02-01] MEDS: SODIUM CHLORIDE 0.9% 1,000 ML IV SCH ×3 (07:42→11:12)
[2017-02-01] MEDS: METOPROLOL SUCCINATE (ER) 50 MG TAB.ER.24H PO SCH (07:43)
[2017-02-01] MEDS: PANTOPRAZOLE 40 MG TABLET PO SCH (07:43)
[2017-02-01] MEDS: THIAMINE 100 MG TAB PO SCH (07:44)
[2017-02-01 07:48] LABS: Prothrombin Time 18.9 sec (9.0-12.0)
[2017-02-01 07:57] LABS: Anisocytosis Slight; CHCM 31.8; HCT 31.3 % (39.0-53.0); HDW 2.95; HGB 9.9 gm/dL (13.0-17.5); Immature Gran Flag Slight; MCH 35.3 pg (25.0-35.0); MCHC 31.8 g/dL (31.0-37.0); MCV 111.1 fL (80.0-100.0); Macrocytosis Marked; Mean Platelet Volume 10.1; RBC 2.82 m/uL (4.30-5.90); RDW 18.5 % (11.5-15.5); WBC 8.2 k/uL (3.8-10.6); WBC (Perox) 9.88
[2017-02-01] MEDS: IPRATROPIUM-ALBUTEROL 3 ML NEB INHALATION SCH ×3 (08:04→15:45)
[2017-02-01 08:06] LABS: Calcium 8.6 mg/dL (8.4-10.2); Potassium 4.5 mmol/L (3.5-5.1); Total Protein 6.4 g/dL (6.3-8.2)
[2017-02-01 08:24] LABS: Add Differential Manual Differential
[2017-02-01 08:27] LABS: Band Neutrophils % 2.5 %; Myelocytes % 0.5 %; Nucleated Red Blood Cells 0 /100 WBC (0-0); Polychromasia Present; Total Cells Counted 200; Toxic Granulation Present
[2017-02-01 08:46] VITALS: RESP 20
--- NOTE | 2017-02-01 09:31 | P.NPCON ---
History of Present Illness - Reason for Consult acute renal failure - History of Present Illness Reason for consult: Acute kidney injury History of present illness: Patient is a 56-year-old male seen in renal consultation for acute kidney injury. Patient presented to the hospital with abdominal pain and distention. He underwent a CT of the abdomen with IV contrast on January 28 which revealed hepatic lesions as well as ascites. No hydronephrosis was present. His baseline creatinine is near 1 and was 1.7 on admission January 28. Today is up at 3.07. He underwent liver biopsy yesterday. His urinalysis is quite benign. He has been voiding but states his urine output has been low and brown. His appetite is quite poor. Denies any vomiting or diarrhea. Denies chest pain or shortness of breath. Denies use of NSAIDs at home. No fever or chills. He is currently maintained on normal saline running at 50 mL an hour that was started on January 30. Vital signs are stable. General: The patient appeared well nourished and normally developed. HEENT: Head exam is unremarkable. Neck is without jugular venous distension. LUNGS: Lungs are clear to auscultation and percussion. Breath sounds decreased. HEART: Rate and Rhythm are regular. First and second heart sounds normal. No murmurs, rubs or gallops. ABDOMEN: Abdominal exam reveals normal bowel sounds. Moderately distended. EXTREMITITES: Trace edema. Past Medical History Past Medical History: Atrial Fibrillation, Heart Failure, COPD, Hyperlipidemia, Hypertension, Osteoarthritis (OA) Additional Past Medical History / Comment(s): NEW ONSET AFIB History of Any Multi-Drug Resistant Organisms: None Reported Past Surgical History: No Surgical Hx Reported Past Anesthesia/Blood Transfusion Reactions: No Reported Reaction Past Psychological History: No Psychological Hx Reported Additional Psychological History / Comment(s): PT LIVES ALONE HAS 1 INDOOR PET( DOG).HAS 3 STEPS TO GET INTO HOUSE-HOUSE ON 1 LEVEL. 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 Smoking Status: Former smoker Past Alcohol Use History: Daily Additional Past Alcohol Use History / Comment(s): STARTED SMOKING 1984, QUIT FEW YEARS AGO, DRIKS 3-4 BEER PER DAY. Past Drug Use History: Marijuana - Past Family History Father Family Medical History: Cancer, Hyperlipidemia, Hypertension Additional Family Medical History / Comment(s): LEUKEMIA Mother Family Medical History: Myocardial Infarction (DC) Medications and Allergies Home Medications Medication Instructions Recorded Confirmed Type Metoprolol Succinate [Toprol XL] 50 mg PO DAILY 01/20/17 01/28/17 History amLODIPine [Norvasc] 5 mg PO HS 01/20/17 01/28/17 History Allergies Allergy/AdvReac Type Severity Reaction Status Date / Time venom-honey bee AdvReac Severe Swelling Verified 01/28/17 13:57 [bee venom (honey bee)] Physical Exam Vitals: Vital Signs Temp Pulse Pulse Resp BP BP Pulse Ox 02/01/17 07:00 97 F L 76 20 125/69 95 01/31/17 22:14 97.9 F 71 94 L 01/31/17 20:19 72 113/67 01/31/17 15:39 97.9 F 72 16 111/70 99 01/31/17 13:48 97 F L 74 16 120/80 97 01/31/17 13:38 97 F L 75 16 125/76 95 01/31/17 13:05 97.6 F 75 16 125/76 01/31/17 11:46 97 F L 77 16 131/88 01/31/17 11:36 97.5 F L 68 16 105/66 95 01/31/17 11:02 72 16 112/66 01/31/17 10:25 97.1 F L 73 16 112/66 96 01/31/17 09:45 76 16 111/68 94 L 01/31/17 09:33 74 16 107/66 94 L Intake and Output 01/31/17 02/01/17 02/01/17 22:59 06:59 14:59 Intake Total 1006 400 Balance 1006 400 Intake: IV 200 400 .9@50 200 400 Oral 480 Blood Product 326 Ffp 24 Cpd Unit 326 [id number] Other: Voiding Method Toilet Toilet Toilet Urinal # Voids 2 1 Weight 84.5 kg Results - Lab Results Most recent lab results Calcium 8.6 mg/dL (8.4-10.2) 02/01/17 07:15 Magnesium 2.4 mg/dL (1.6-2.3) H 01/30/17 08:21 02/01/17 07:15 02/01/17 07:15 Assessment and Plan Plan: Assessment: #1. Acute kidney injury secondary to ATN secondary to contrast-induced nephropathy. Also possibility of hepatorenal syndrome. Urinalysis is quite benign and there is no evidence of hydronephrosis or sepsis. Creatinine up to 3.07 today. Baseline creatinine is near 1. #2. Hyponatremia. Appears slightly hypervolemic however intravascularly depleted due to poor oral intake and hypoalbuminemia. #3. Metabolic acidosis secondary to acute kidney injury. #4. Hepatic lesions, possible malignancy. Status post liver biopsy in January 31. Plan: I will increase normal saline to be run at 75 mL an hour. Insert Santiago catheter for strict intake and output. 1.2 L fluid restriction. Encourage oral intake. Add ensure with meals. Avoid nephrotoxic agents and hypotensive episodes. I did discuss with him briefly the potential need for renal replacement therapy in the next few days if no improvement in renal function and urine output. Thank you for the consultation. I will continue to follow the patient with you during his hospital stay.
[2017-02-01] MEDS: SENNOSIDES-DOCUSATE SODIUM 1 EACH TAB PO SCH (11:12)
--- NOTE | 2017-02-01 13:16 | DS ---
DATE OF ADMISSION: 01/28/2017 DATE OF DISCHARGE: FINAL DIAGNOSES: 1. Abdominal pain with distention with possibly primary hepatic malignancy with worsening hepatorenal failure. 2. Rule out metastatic lesion. 3. Ascites. 4. Hyperbilirubinemia. 5. Possible alcoholic hepatitis, present on admission. 6. Possible underlying cirrhosis of liver. 7. Increased AST, ALT, alkaline phosphatase. 8. Increased lactic acid. 9. Acute renal failure, possible prerenal factors, multifactorial. 10. Hypernatremia. 11. Anemia, normocytic, possibly secondary to ethyl alcohol. 12. Abdominal distention, nonspecific ileus. 13. History of nicotine dependence. 14. Hypoalbuminemia with mild to moderate protein calorie malnutrition. 15. History of atrial fibrillation. 16. History of chronic diastolic dysfunction with chronic diastolic dysfunction, ejection fraction 50 to 65%, diastolic. 17. History of chronic obstructive pulmonary disease. 18. Hypertension. 19. Hyperlipidemia. 20. History of degenerative joint disease. 21. History of THC. 22. FULL CODE. DISCHARGE DISPOSITION: The patient will be transferred to [facility] in stable condition. Total time taken 35 minutes. HISTORY OF PRESENT ILLNESS: This 56-year-old gentleman with a past medical history of multiple medical problems admitted with abdominal pain with features of elevated bilirubin and possible hepatic malignancy with primary lesion with saddle lesions. The liver biopsy was done. Findings are pending at this time but however, while in the hospital the patient's creatinine and bilirubin worsened. The creatinine was 1.92 on admission on 01/29/17. Today it is 3.07. The patient is not anuric at this time. Bilirubin is 7.2, hemoglobin is 14. The patient is making urine and AST was 285 and 709 currently and ALT was 85 and currently 142. Because of the patient's worsening condition, I discussed case with [facility] Transfer Team and the patient will be transferred to [facility] for further evaluation and treatment. Multiple consultants saw the patient during the hospitalization. We had a detailed discussion with family. Once again, the prognosis is guarded but currently stable for transfer. The current medications are: 1. DuoNeb q.i.d. and p.r.n. 2. Norvasc 5 mg q.h.s. 3. Ativan CIWA protocol. 4. Melatonin 3 mg q.h.s. p.r.n. 6. Morphine sulfate 4 mg q.6 p.r.n. 7. Narcan p.r.n. 8. Zofran 4 mg IV q.8 p.r.n. 9. Protonix 40 mg daily. 10. Senokot S 2 tablets b.i.d. 11. IV fluids 75 mL 0.9. 12. Vitamin B 100 mg p.o. daily. MTDD
[2017-02-01 15:36] VITALS: BP 102/61; PULSE 66; TEMP 97.2
--- NOTE | 2017-02-01 16:00 | PN ---
DATE OF SERVICE: 02/01/2017 Reason for follow up is possible sepsis. INTERVAL HISTORY: The patient is afebrile. He has been breathing comfortably. He still has abdominal distention, but not worsening pain. No nausea, no vomiting or any diarrhea. On examination, blood pressure 125/69 with a pulse of 76, temperature 97. He is 95% on room air. General description is a middle-age male lying in bed in no distress. HEENT EXAMINATION: Scleral icterus is positive. Oral mucous membrane dry. LUNGS: Unlabored breathing. Clear to auscultation anteriorly. HEART: S1, S2 regular rate and rhythm. ABDOMEN: Soft, distended. No guarding or rigidity. LABS: Bilirubin is up to 14 today with elevation of liver enzymes. Creatinine is up to 3.07. Blood culture has been negative. Urine is negative. DIAGNOSTIC IMPRESSION AND PLAN: Patient in the hospital with abdominal distention and bloating with evidence of obstructive jaundice and liver mass, status post biopsy. Now with renal failure resolved with question of possible hepatorenal syndrome. Clinical suspicion remains low for infection as the patient remains to be afebrile and white count normal. All his cultures are negative. No need for any systemic antibiotic. Management of his underlying liver and kidney condition per GI and Nephrology. Family present at the bedside. Their questions were answered.
== END 2017-02-01 16:28 | disposition short-term general hospital (02) | DRG 435 ==
LOC: EC 13:51 → 5MS5E 18:43 → 5ONC 19:45
PROVIDERS: ADMIT Internal Medicine; ATTEND Internal Medicine
PROC: 0FB13ZX Excision of Right Lobe Liver, Percutaneous Approach, Diagnostic (ICD-10-PCS; principal; 2017-01-31)
PROC: 30233K1 Transfusion of Nonautologous Frozen Plasma into Peripheral Vein, Percutaneous Approach (ICD-10-PCS; 2017-01-31)
DX: C22.8 Malignant neoplasm of liver, primary, unspecified as to type (principal); I81 Portal vein thrombosis; N17.0 Acute kidney failure with tubular necrosis; K76.7 Hepatorenal syndrome; K83.1 Obstruction of bile duct; E44.0 Moderate protein-calorie malnutrition; D68.4 Acquired coagulation factor deficiency; I50.22 Chronic systolic (congestive) heart failure; C79.9 Secondary malignant neoplasm of unspecified site; E87.2 Acidosis; R18.8 Other ascites; K56.7 Ileus, unspecified; E87.1 Hypo-osmolality and hyponatremia; D64.9 Anemia, unspecified; I11.0 Hypertensive heart disease with heart failure; I48.91 Unspecified atrial fibrillation; E78.5 Hyperlipidemia, unspecified; E86.0 Dehydration; F10.10 Alcohol abuse, uncomplicated; F12.90 Cannabis use, unspecified, uncomplicated; J44.9 Chronic obstructive pulmonary disease, unspecified; N14.1 Nephropathy induced by other drugs, medicaments and biological substances; T50.8X5A Adverse effect of diagnostic agents, initial encounter; M19.90 Unspecified osteoarthritis, unspecified site; K70.10 Alcoholic hepatitis without ascites; K74.60 Unspecified cirrhosis of liver; Z79.899 Other long term (current) drug therapy; Z85.05 Personal history of malignant neoplasm of liver; Z87.891 Personal history of nicotine dependence; Z82.49 Family history of ischemic heart disease and other diseases of the circulatory system; Y92.239 Unspecified place in hospital as the place of occurrence of the external cause
CPT/HCPCS: 10022; 36415; 74000; 74022; 74177; 76705; 77012; 80053; 81001; 82140; 83605; 83690; 83735; 85025; 85027; 85610; 85730; 86850; 86900; 86901; 87040; 87086; 88173; 88305; 88341; 88342; 94640; 96361; 96374; 96375; 99285